=== PATIENT | female | born 1965 | race Caucasian/White ===

== ENCOUNTER 2020-07-16 11:23 | Emergency (ER) | payer OTHER, SELFPAY ==
[2020-07-16 11:32] VITALS: BP 170/94; PULSE 87; RESP 18; TEMP 36.2; O2SAT 99
--- NOTE | 2020-07-16 11:59 | ED.URI ---
HPI - URI/Sore Throat General Chief Complaint: Upper Respiratory Infection Stated Complaint: upper respiratory infection Time Seen by Provider: 07/16/20 11:40 Source: patient and RN notes reviewed Mode of arrival: ambulatory Limitations: no limitations History of Present Illness HPI Narrative: Patient presents today with a 3-week history of nasal congestion, postnasal drip, right ear pain and muffled hearing. She had a telephone visit with her PCP at [place] last week and was placed on a 5-day course of Levaquin. States symptoms have not improved. She called her PCPs office and was told to come to urgent care for a jeop-zg-tuor evaluation. Since symptoms began, patient has been using Synex (oxymetazoline) nasal spray, [id number] eardrops containing alcohol and glycerin, NyQuil, and Sudafed. Denies fever, shortness of breath, cough MD elicited complaint: nasal congestion Related Data Home Medications Medication Instructions Recorded Confirmed lisinopril 5 mg tablet 5 mg PO DAILY 09/26/19 07/16/20 Allergies Allergy/AdvReac Type Severity Reaction Status Date / Time amoxicillin Allergy Severe hives Verified 07/16/20 11:37 Review of Systems Review of Systems: Narrative: CONSTITUTIONAL: Denies body aches, fever, chills, or sweats. EYES: Denies visual changes, redness, or discharge. ENT: Denies rhinorrhea, sore throat. + Nasal congestion, postnasal drip, right ear pain and muffled hearing CARDIOVASCULAR: Denies chest pain, palpitations, or edema. RESPIRATORY: Denies cough or dyspnea. GASTROINTESTINAL: Denies abdominal pain, nausea, vomiting, or diarrhea. GENITOURINARY: Denies dysuria or hematuria. SKIN: Denies rash, itching, or wounds. MUSCULOSKELETAL: Denies back pain, joint pain, or myalgia. NEUROLOGIC: Denies headache, numbness, tingling, or weakness. PSYCH: Denies depression or anxiety. [facility] Past Medical History Medical History (Updated 07/16/20 @ 12:05 by Linda Quarles, [facility], ) Douglas's thyroiditis Hypertension Family History Family History (Updated 06/11/16 @ 23:19 by DOCTOR UNKNOWN) Mother Family history of osteoporosis Family history of heart disease in male family member before age 55 Grandparent Family history of cataracts Family history of congestive heart failure Father Family history of cataracts Family history of diabetes mellitus in first degree relative Family history of congestive heart failure Social History Social History Smoking status: Never smoker Alcohol intake: never Comments At time of signature, I have reviewed and agree with nursing past medical, surgical, social and family history unless otherwise noted. Please see nursing chart for further information. There is no relevant family history pertinent to the presenting complaint Exam Narrative: Exam Narrative: GENERAL: Well-appearing, well-nourished, and in no acute distress. HEAD: Normocephalic, atraumatic. EYES: EOMI. No redness or drainage. Conjunctivae normal. ENT: Mucous membranes pink and moist. Bilateral erythematous and edematous nasal turbinates with clear drainage. No rhinorrhea. Left TM normal. Right TM is slightly injected and mildly bulging with clear fluid. Throat normal. Uvula midline. NECK: Normal AROM. Supple. No lymphadenopathy. CHEST: No respiratory distress. Clear to auscultation. HEART: Regular rate and rhythm. No murmur appreciated. Normal peripheral pulses. EXTREMITIES: Normal range of motion. No edema. SKIN: Warm, dry, no rash. Capillary refill normal. Normal skin turgor. NEURO: No focal deficits. Alert and oriented x3. Gait steady. PSYCH: Normal affect. No signs of depression or anxiety. Course Vital Signs Vital signs: Vital Signs Temperature 97.2 F L 07/16/20 11:32 Pulse Rate 87 07/16/20 11:32 Respiratory Rate 18 07/16/20 11:32 Blood Pressure 170/94 H 07/16/20 11:32 Pulse Oximetry 99 07/16/20 11:32 Temperature 97.2 F L
== END 2020-07-16 12:09 | disposition home or self-care (01) ==
PROVIDERS: Emergency Provider Nurse Practitioner
DX: J31.0 Chronic rhinitis (principal); H65.91 Unspecified nonsuppurative otitis media, right ear; E06.3 Autoimmune thyroiditis; I10 Essential (primary) hypertension
CPT/HCPCS: 99213; G0463

== ENCOUNTER 2020-08-07 14:34 | Emergency (ER) | payer OTHER, SELFPAY ==
[2020-08-07 14:46] VITALS: BP 145/84; PULSE 86; RESP 20; TEMP 36.7; O2SAT 99
--- NOTE | 2020-08-07 14:57 | ED.BACK ---
HPI - Back Pain/Injury General Chief Complaint: Back Pain/Injury Stated Complaint: back pain Source: patient Mode of arrival: ambulatory Limitations: no limitations History of Present Illness HPI Narrative: 55-year-old female presents to [facility] care with complaints of right upper back pain for the past 3 days. Patient reports that the pain became much worse last night. Patient has been taking jbzj-obc-zjaindh Tylenol and applying heat and cool compress with little relief. Patient reports long history of back pains. Patient denies numbness, tingling, bowel or bladder problems, chest pain or shortness of breath. MD elicited complaint: back pain Pertinent past history: prior back pain Onset (ago): day(s) (3) Timing: constant Severity: moderate Similar Symptoms Previously: Yes Quality: sharp Exacerbating factors: movement and lifting Relieving factors: none Associated symptoms: denies other symptoms Related Data Home Medications Medication Instructions Recorded Confirmed lisinopril 5 mg tablet 5 mg PO DAILY 09/26/19 08/07/20 Allergies Allergy/AdvReac Type Severity Reaction Status Date / Time amoxicillin Allergy Severe hives Verified 08/07/20 14:50 Review of Systems Review of Systems: All systems reviewed & are unremarkable except as noted in HPI and below Constitutional: Constitutional: Denies chills, Denies fatigue, Denies fever(s) and Denies weakness ENT: Denies vertigo and Denies dizziness Cardiovascular: Cardiovascular: Denies chest pain, Denies rapid heart rate, Denies radiating jaw, neck or arm pain and Denies slow heart rate Respiratory: Respiratory: Denies chest congestion, Denies cough, Denies dyspnea and Denies wheezing Gastrointestinal: Gastrointestinal: Denies abdominal pain, Denies diarrhea, Denies nausea and Denies vomiting Musculoskeletal: Musculoskeletal: Reports back pain, Denies myalgias, Denies joint swelling and Denies muscle cramps Integumentary/Breasts: Skin/Breast: Denies rash Neurologic: Denies vertigo, Denies dizziness, Denies headache(s), Denies focal weakness, Denies numbness and Denies weakness PMFSH Past Medical History Medical History (Updated 08/07/20 @ 15:25 by Deana Bauer APRN) Douglas's thyroiditis Hypertension Surgical History Surgical History (Updated 08/07/20 @ 15:00 by Deana Bauer APRN) Tubal ligation status Family History Family History Mother Family history of osteoporosis Family history of heart disease in male family member before age 55 Grandparent Family history of cataracts Family history of congestive heart failure Father Family history of cataracts Family history of diabetes mellitus in first degree relative Family history of congestive heart failure Social History Social History Smoking status: Never smoker Alcohol intake: never Exam Const: General: healthy appearing, no acute distress and alert Orientation/consciousness: patient oriented x3 Neck: Neck: normal visual inspection Resp: Effort & Inspection: normal respiratory effort, not labored and not tachypneic Auscultation: clear to auscultation bilaterally and no wheezes Cardio: Rate: regular rate, not bradycardic and not tachycardic Rhythm: regular rhythm and regular rhythm GI: Inspection: non-distended Auscultation: normal bowel sounds Back/Spine/Pelvis: Back: no CVA tenderness Other: Mild amount of pain noted to right upper back upon palpation. There is a muscle spasm noted to right upper back. There is no rash, erythema, bruising or signs of infection noted. There is no vertebral tenderness noted upon palpation. There is no deformity noted Skin: General skin exam: normal color Rashes: no rashes Neuro: General: patient oriented x3, moves all extremities and no meningeal signs Extrem: General: normal to inspection Psych: Mental Status: ment
[2020-08-07] MEDS: KETOROLAC (*BKC) 60 MG/2 ML VIAL 30 MG IM (15:00)
== END 2020-08-07 15:35 | disposition home or self-care (01) ==
PROVIDERS: Emergency Provider Nurse Practitioner Family
DX: M62.830 Muscle spasm of back (principal); E06.3 Autoimmune thyroiditis; I10 Essential (primary) hypertension
CPT/HCPCS: 96372; 99213; G0463; J1885

== ENCOUNTER 2020-08-09 06:11 | Emergency (ER) | payer OTHER, SELFPAY ==
--- NOTE | ~2020-08-09 | CT_ITS ---
EXAMINATION: CT thoracic spine wo con DATE: 08/09/2020 07:53 INDICATION: Thoracic back pain TECHNIQUE: Computed tomography (CT) of the thoracic spine was performed without intravenous contrast. The dose-length product was 1073.48 mGy-cm. Automated exposure control and iterative reconstruction technique were employed. COMPARISON: None FINDINGS: There is mild levoscoliosis of the thoracic spine. No acute fracture, subluxation or disloc ation. No significant paraspinal soft tissue abnormality. Lung parenchyma is unremarkable. No pneumot horax identified. Surrounding osseous structures within normal limits. IMPRESSION: 1. No acute abnormality of the thoracic spine. Reviewed, dictated and finalized at location A.
[2020-08-09 06:13] VITALS: BP 149/82; PULSE 91; RESP 16; TEMP 36.7; O2SAT 99
--- NOTE | 2020-08-09 06:30 | ED.BACK ---
HPI - Back Pain/Injury General Chief Complaint: Back Pain/Injury <Xiomara Torre MD - Last Filed: 08/09/20 07:27> Stated Complaint: back pain <Xiomara Torre MD - Last Filed: 08/09/20 07:27> Time Seen by Provider: 08/09/20 06:30 <Xiomara Torre MD - Last Filed: 08/09/20 07:27> Source: patient <Xiomara Torre MD - Last Filed: 08/09/20 07:27> Mode of arrival: ambulatory <Xiomara Torre MD - Last Filed: 08/09/20 07:27> Limitations: no limitations <Xiomara Torre MD - Last Filed: 08/09/20 07:27> History of Present Illness HPI Narrative: Patient presents for evaluation of pain right upper back spasm.. Recently seen in urgent care, sent home on methocarbamol and has not been improving. Patient reports pain in the back of her right shoulder blade with radiation into her right shoulder and down into her arm. She denies any chest pain or shortness of breath. She denies pleuritic pain. No fever, chills, cough or hemoptysis. Pain is exacerbated with movement and resolves with rest. She denies any recent falls or injury. She denies numbness in her hands. She denies any weakness. Patient states that symptoms seem to occur after she did some light lifting/working out on Tuesday and and symptoms developed Tuesday. Patient denies any rash in that area. She does have a history of shingles and states she has not seen any blisters or wounds. Patient denies any midline back pain. She denies any flank pain or abdominal pain. <Xiomara Torre MD - Last Filed: 08/09/20 07:27> Related Data Home Medications: Home Medications Medication Instructions Recorded Confirmed lisinopril 5 mg tablet 5 mg PO DAILY 09/26/19 08/07/20 <Xiomara Torre MD - Last Filed: 08/09/20 07:27> Allergies/Adverse Reactions: Allergies Allergy/AdvReac Type Severity Reaction Status Date / Time amoxicillin Allergy Severe hives Verified 08/07/20 14:50 <Xiomara Torre MD - Last Filed: 08/09/20 07:27> Review of Systems Review of Systems: Narrative: CONSTITUTIONAL: Denies fever, chills, or sweats. ENT: Denies rhinorrhea, congestion CARDIOVASCULAR: Denies chest pain, palpitations, or edema. RESPIRATORY: Denies cough or dyspnea. GASTROINTESTINAL: Denies abdominal pain, nausea, vomiting, or diarrhea. GENITOURINARY: Denies dysuria or hematuria. SKIN: Denies rash or itching. MUSCULOSKELETAL: Reports right-sided back pain near to the shoulder NEUROLOGIC: Denies headache, numbness, or weakness. <Xiomara Torre MD - Last Filed: 08/09/20 07:27> [facility] Past Medical History Medical History: Medical History Douglas's thyroiditis Hypertension <Xiomara Torre MD - Last Filed: 08/09/20 07:27> Surgical History Surgical History: Surgical History (Updated 08/07/20 @ 15:00 by Deana Bauer APRN) Tubal ligation status <Xiomara Torre MD - Last Filed: 08/09/20 07:27> Family History Family History: Family History Mother Family history of osteoporosis Family history of heart disease in male family member before age 55 Grandparent Family history of cataracts Family history of congestive heart failure Father Family history of cataracts Family history of diabetes mellitus in first degree relative Family history of congestive heart failure <Xiomara Torre MD - Last Filed: 08/09/20 07:27> Social History Social History: Social History Smoking status: Never smoker Alcohol intake: never <Xiomara Torre MD - Last Filed: 08/09/20 07:27> Exam Narrative: Exam Narrative: GENERAL: Awake, alert, conversant HEAD: Normocephalic, atraumatic. EYES: PERRLA and EOMI. ENT: Nares clear, no rhinorrhea or epistaxis. Mucous membranes moist. NECK: Supple. CHEST: No respiratory distress, breathing e
--- NOTE | 2020-08-09 06:33 | PC.NURSE ---
pt presents to ER with c/o R upper back pain that radiates down R arm and into R upper chest. pt was seen at on and sent home with Meloxicam and Methocarbamol. pt denies relief of pain with medications. states pain has been persistent and she hasn't been able to sleep. full ROM to R arm. +PMS. Pt denies injury to arm. +pain with palpation. denies SOB, denies any associated sx. pt hooked up to monitor, will continue to monitor pt for baseline status changes.
--- NOTE | 2020-08-09 06:36 | ECG_ITS ---
Measurements Intervals [place] Rate: 75 P: 41 NM: 155 QRS: 27 QRSD: 90 T: 14 QT: 375 QTc: 421 Interpretive Statements SINUS RHYTHM BORDERLINE ST ABNORMALITY- ANTEROLATERAL LEADS BASELINE ARTIFACT- I, II, AVR BORDERLINE ECG Electronically Signed On 08-09-2020 8:33:34 CDT by Néstor Underwood D.O.
[2020-08-09] MEDS: KETOROLAC (*BKC) 60 MG/2 ML VIAL 30 MG IM (06:59)
[2020-08-09] MEDS: diazePAM (*CRX) 5 MG TABLET PO (06:59)
[2020-08-09 07:29] VITALS: TEMP 36.7
[2020-08-09 08:43] VITALS: BP 161/100; PULSE 75; RESP 18; O2SAT 100
== END 2020-08-09 08:44 | disposition home or self-care (01) ==
PROVIDERS: Emergency Provider Emergency Medicine
DX: M54.6 Pain in thoracic spine (principal); E06.3 Autoimmune thyroiditis; I10 Essential (primary) hypertension; R94.31 Abnormal electrocardiogram [ECG] [EKG]
CPT/HCPCS: 72128; 93005; 96372; 99284; A9270; J1100; J1885

== ENCOUNTER 2021-11-17 07:57 | Outpatient (CLI) | payer OTHER, SELFPAY ==
--- NOTE | 2021-11-18 17:47 | WPDHOMESLEEP ---
Sleep Study - Home Unattended Date of Study: 11/17/21 <Rosmery Mckeon DO - Last Filed: 11/18/21 17:59> Ordering Provider: Linda ChampagneMD <Rosmery Mckeon DO - Last Filed: 11/18/21 17:59> Interpreting Provider: Rosmery Mckeon DO <Rosmery Mckeon DO - Last Filed: 11/18/21 17:59> Home Sleep Study Type: Apnea Link Air <Rosmery Mckeon DO - Last Filed: 11/18/21 17:59> Height: 1.55 m <Rosmery Mckeon DO - Last Filed: 11/18/21 17:59> Weight: 95.254 kg <Rosmery Mckeon DO - Last Filed: 11/18/21 17:59> Body Mass Index: 39.6 <Rosmery Mckeon DO - Last Filed: 11/18/21 17:59> Neck Circumference (inches): 14 <Rosmery Mckeon DO - Last Filed: 11/18/21 17:59> [place]: 4 <Rosmery Mckeon DO - Last Filed: 11/18/21 17:59> Reason for Sleep Study Daytime hypersomnia <Rosmery Mckeon DO - Last Filed: 11/18/21 17:59> Sleep History The patient is a 56-year-old female with hypertension, hypothyroidism, hyperlipidemia and B12 deficiency that had a home sleep test ordered by her ditching machine operator. The patient rarely awakens from sleep short of breath. She denies awakening at night with heartburn, belching or cough. She frequently snores and is occasionally loud enough that others complain. She occasionally has trouble sleeping when she has a cold. She denies waking up gasping for air throughout the night. She denies having breathing problems at night observed by others. She denies sweating excessively at night. She rarely has heart palpitations or irregular heartbeats during the night. She rarely falls asleep during the day and never while driving. She denies sleep paralysis, cataplexy and hypnagogic / hypnopompic hallucinations. She denies having trouble at work that his sleepiness. She denies having nightmares. She frequently has thoughts racing through her mind. She denies feeling sad, depressed or anxious. She occasionally kicks during the night. She occasionally has crawling and aching feelings in her legs as well as leg pain during the night. She denies grinding her teeth during sleep and awakening with morning jaw pain. She is really bothered by pain during the day and is rarely awakened by pain during the night. She occasionally wakes up feeling stiff in the morning with sore and achy muscles. She occasionally wakes up with pain in the neck, spine and other joints. She goes to bed between 10 and 11:00 p.m. on weekdays and between 11:00 p.m. and midnight on the weekends. It takes her 1-2 hours to fall asleep. She will wake up 2-3 times per night. When she awakens, she will toss and turn to try to fall back asleep. She will open up staying awake for 20-30 minutes. She wakes up at 6:00 a.m. on weekdays and between 7 and 8:00 a.m. on the weekends. She typically gets between 6 and 8 hours of sleep per night. She will stay in bed for 15-30 minutes after waking up in the morning. He currently lives with her and her daughter. She does not consume any caffeinated beverages within 2 hours of bedtime. She does not engage in physical exercise before bedtime. She will watch television before falling asleep. She does not take naps in the afternoon with the evening. She drinks 48 oz of diet Coke per day. She denies tobacco, alcohol and recreational drug use. <Rosmery Mckeon DO - Last Filed: 11/18/21 17:59> [facility] Past Medical History Medical History: Medical History (Updated 11/18/21 @ 17:56 by Rosmery Mckeon DO) Douglas's thyroiditis Hypertension <Rosmery Mckeon DO - Last Filed: 11/18/21 17:59> Surgical History Surgical History: Surgical History Tubal ligation status <Rosmery Mckeon, DO - Last Filed: 11/18/21 17:59> Family History Family History: Family History (Reviewed 11/18/21 @ 17:53 by Rosmery Anthony
[2021-11-18 17:58] VITALS: BMI 39.6
== END 2021-11-18 10:23 | disposition home or self-care (01) ==
LOC: ANHCSM 07:58
PROVIDERS: Visit Provider Internal Medicine Endocrinology, Diabetes & Metabolism
DX: G47.30 Sleep apnea, unspecified (principal); G47.33 Obstructive sleep apnea (adult) (pediatric)
CPT/HCPCS: 95806

== ENCOUNTER 2022-02-20 07:15 | Emergency (ER) | payer OTHER, SELFPAY ==
[2022-02-20 07:19] VITALS: BP 167/117; PULSE 92; RESP 19; TEMP 36.4; O2SAT 99
[2022-02-20] MEDS: TIZANIDINE HCL 4 MG TABLET PO (07:43)
[2022-02-20] MEDS: ACETAMINOPHEN 500 MG TABLET 1000 MG PO (07:43)
[2022-02-20] MEDS: KETOROLAC 30 MG/ML VIAL (*BKC) IM (07:43)
--- NOTE | 2022-02-20 07:50 | ED.BACK ---
HPI - Back Pain/Injury General Chief Complaint: Back Pain/Injury Stated Complaint: back spasms, right arm pain Time Seen by Provider: 02/20/22 07:22 Source: patient History of Present Illness HPI Narrative: Patient presents with right upper back pain. Patient reports a history of back spasm in the same area as she gets it every couple years. She does see physical therapy for it. This episode started approximately 1 week ago she will discuss [employer] and was given steroids as well as a muscle relaxer however did not alleviate her symptoms so she came to this ER for further evaluation. Her pain is achy, radiates down her right arm, worse with moving. Denies any trauma in the area announcement patient denies any IV drug use denies any chills. Related Data Home Medications Medication Instructions Recorded Confirmed lisinopril 5 mg tablet 5 mg PO DAILY 09/26/19 08/07/20 Allergies Allergy/AdvReac Type Severity Reaction Status Date / Time amoxicillin Allergy Severe hives Verified 02/20/22 07:25 Review of Systems Review of Systems: CONSTITUTIONAL: Denies fever, chills, or sweats. EYES: Denies visual changes, redness, or discharge. ENT: Denies rhinorrhea, congestion, sore throat, or otalgia. CARDIOVASCULAR: Denies chest pain, palpitations, or edema. RESPIRATORY: Denies cough or dyspnea. GASTROINTESTINAL: Denies abdominal pain, nausea, vomiting, or diarrhea. GENITOURINARY: Denies dysuria or hematuria. SKIN: Denies rash or itching. MUSCULOSKELETAL: Denies back pain, joint pain, or myalgia. NEUROLOGIC: Denies headache, numbness, dizziness, or weakness. PSYCHIATRIC: Denies anxiety or depression. All systems reviewed & are unremarkable except as noted in HPI and below [facility] Past Medical History Medical History (Updated 02/20/22 @ 08:26 by Lai Clark MD) Douglas's thyroiditis Hypertension Surgical History Surgical History Tubal ligation status Family History Family History Mother Family history of osteoporosis Family history of heart disease in male family member before age 55 Grandparent Family history of cataracts Family history of congestive heart failure Father Family history of cataracts Family history of diabetes mellitus in first degree relative Family history of congestive heart failure Social History Social History Smoking status: Never smoker Alcohol intake: never Exam Narrative: GENERAL: Well-appearing, well-nourished, and in no acute distress. HEAD: Normocephalic, atraumatic. EYES: PERRLA and EOMI. ENT: Nares clear, no rhinorrhea or epistaxis. Mucous membranes moist. NECK: Supple. No masses. No JVD. BACK: Has palpation and spasm noted along the right trapezius there is diffuse tenderness is muscle there is no obvious deformities no open or draining wounds EXTREMITIES: Normal range of motion. No edema. SKIN: Warm, dry, no rash. NEURO: No focal deficits. Alert and oriented x3. PSYCH: Normal mood and affect. Course Reevaluation(s) Reevaluation #1: Patient received her medications prior to reevaluation. Patient has not noted any signal change in her symptoms discuss medications use to assist with muscle as of this type of pain. Patient is requesting a Medrol Dosepak because it was initially effective in controlling her pain control her symptoms until she is able to see physical therapy on Tuesday. Date: 02/20/22 Time: 08:24 Vital Signs Vital signs: Vital Signs Temperature 36.4 C 02/20/22 07:19 Pulse Rate 92 02/20/22 07:19 Respiratory Rate 19 02/20/22 07:19 Blood Pressure 167/117 H 02/20/22 07:19 Pulse Oximetry 99 02/20/22 07:19 Temperature 36.4 C 02/20/22 07:19 Pulse Rate 80 02/20/22 08:29 Respiratory Rate 18 02/20/22 08:29 Blood Pressure 150/98 H 02/20/22 08:29 Pulse Oximetr
[2022-02-20 08:29] VITALS: BP 150/98; PULSE 80; RESP 18; O2SAT 100
== END 2022-02-20 08:31 | disposition home or self-care (01) ==
PROVIDERS: Emergency Provider Emergency Medicine
DX: M54.6 Pain in thoracic spine (principal); E06.3 Autoimmune thyroiditis; I10 Essential (primary) hypertension
CPT/HCPCS: 96372; 99283; A9270; J1885

== ENCOUNTER 2024-11-11 09:00 | Emergency (ER) | payer OTHER, SELFPAY ==
[2024-11-11 09:26] VITALS: BP 155/102; PULSE 73; RESP 16; TEMP 35.9; O2SAT 100
--- NOTE | 2024-11-11 09:55 | ED.EYEPROB ---
HPI - Eye Problem General Chief complaint: Eye Problems Stated complaint: ? [facility] Time Seen by Provider: 11/11/24 09:55 Source: patient Mode of arrival: ambulatory Limitations: no limitations History of Present Illness HPI Narrative: 59-year-old female presented for complaint of bilateral eye redness, irritation and drainage over the past 3 days.She started using an [id number] Naphcon drop. Denies vision changes, eye pain, headache, or dizziness. Patient also reports she has had nasal congestion drainage over 10 days. Denies shortness of breath, wheezing nausea vomiting, diarrhea, fevers or chills. chief complaint: eye pain Related Data Home Medications ?Medication ?Instructions ?Recorded ?Confirmed ?Last Taken ?Type lisinopril 5 mg tablet 5 mg PO DAILY 09/26/19 08/07/20 Unknown History Allergies Allergy/AdvReac Type Severity Reaction Status Date / Time amoxicillin Allergy Mild hives Verified 11/11/24 09:31 Review of Systems Review of Systems: per HPI All systems reviewed & are unremarkable except as noted in HPI and below PMFSH Past Medical History Medical History (Updated 11/11/24 @ 10:05 by Bre Corbett APRN) Hypertension Douglas's thyroiditis Surgical History Surgical History Tubal ligation status Family History Family History Mother Family history of osteoporosis Family history of heart disease in male family member before age 55 Grandparent Family history of cataracts Family history of congestive heart failure Father Family history of cataracts Family history of diabetes mellitus in first degree relative Family history of congestive heart failure Social History Social History Smoking status: Never smoker Alcohol intake: never Comments At time of signature, I have reviewed and agree with nursing past medical, surgical, social and family history unless otherwise noted. Please see nursing chart for further information. There is no relevant family history pertinent to the presenting complaint Exam Narrative: GENERAL: Well-appearing HEAD: Normocephalic, atraumatic. EYES: bilateral conjunctival injection, no eye lid swelling/redness, PERRLA, EOMI. Lid eversion shows no FB. ENT: Mucous membranes pink and moist. Nasal congestion. TMs normal bilaterally. Throat normal. Uvula midline. CHEST: Clear to auscultation. HEART: Regular rate and rhythm. SKIN: Warm, dry, no rash. Normal skin turgor. NEURO: No focal deficits. Alert and oriented x3 PSYCH: Normal affect. Course Course Emergency Course: Patient is aware of diagnosis, understands and agrees to treatment plan. Anticipatory guidance given. Patient agrees to follow-up as directed and is aware of reasons to seek care at the emergency department. Portions of this record may have been created with voice recognition software Level of Care: Express Care Visit Vital Signs Vital signs: Vital Signs Temperature 96.7 F L 11/11/24 09:26 Pulse Rate 73 11/11/24 09:26 Respiratory Rate 16 11/11/24 09:26 Blood Pressure 155/102 H 11/11/24 09:26 Pulse Oximetry 100 11/11/24 09:26 Temperature 96.7 F L 11/11/24 09:26 Pulse Rate 73 11/11/24 09:26 Respiratory Rate 16 11/11/24 09:26 Blood Pressure 155/102 H 11/11/24 09:26 Pulse Oximetry 100 11/11/24 09:26 MDM - Eye Problem MDM Narrative Medical decision making narrative: Discussed physical exam findings, bilateral conjunctivitis and sinusitis. Reviewed prescriptions.. Advised supportive measures and signs/symptoms to go to the ER. Pt is appropriate for outpt treatment and f/u. Differential Diagnosis Differential diagnosis: Likely corneal abrasion, conjunctivitis, acute iritis and other Discharge Plan Discharge Clinical Impression: Bacterial conjunctivitis Upper respiratory infection Qualifiers: URI type: unspecified URI Qualified Code(s): J06.9 - Acute upper respiratory infection, unspecified Patient Disposition: Home, Self-Care Condition: Stable Instructions: Antibiotic Form, Conjunctivitis (ED) Additional Instructions: For Eyes: Avoid touching or rubbing your eye. Use over the counter lubricating eye drops as needed for irritation Use a warm or cool washcloth on your eye for comfort Use eyedrops as directed - you are contagious for 24 hours after starting the antibiotic Practice good handwashing and hygiene to prevent spread of infection Use new makeup, lashes etc. You may take Tylenol or ibuprofen for pain For sinus: Flonase spray and Zyrtec (or Claritin/Jazmin) over the counter Cough syrup may cause drowsiness; avoid driving or take it at night time. Tylenol 1000mg every 8 hours as needed for pain Symptomatic treatment includes: rest, fluids, and increase humidity of the air at home. Follow-up with PCP or oral and maxillofacial surgery resident if condition is not improving in 2-3days. Go to the emergency room if you have severe pain or pressure behind your eye, difficulty seeing, or other severe symptoms Patient Language: Malagasy Prescriptions: New polymyxin B sulf-trimethoprim 10,000 unit- 1 mg/mL drops 1 drp EACH EYE Q3H 7 Days Qty: 10 0RF Rx Instructions: while awake; do not exceed 6 doses in 24 hours azithromycin [Zithromax Z-Yan] 250 mg tablet See Rx Instructions .ROUTE .COMPLEX Qty: 6 0RF Rx Instructions: For 250 mg dose pack: take 500 mg today (day 1), then 250 mg for 4 days (days 2-5) No Action meloxicam 7.5 mg tablet 7.5 mg PO BID Qty: 20 0RF methocarbamol 500 mg tablet 500 mg PO TID PRN (Reason: pain) Qty: 20 0RF lisinopril 5 mg tablet 5 mg PO DAILY prednisone 20 mg tablet 20 mg PO DAILY 5 Days Qty: 5 0RF diazepam 5 mg tablet 5 mg PO HS PRN (Reason: pain, moderate) Qty: 10 0RF gabapentin 300 mg capsule 300 mg PO DAILY Qty: 30 0RF methylprednisolone [Medrol (Yan)] 4 mg tablets,dose pack See Rx Instructions .ROUTE .COMPLEX Qty: 21 0RF Rx Instructions: orally per package directions levothyroxine [Synthroid] 125 mcg tablet 125 mcg PO DAILY Qty: 90 3RF Rx Instructions: Take 1 tablet by mouth Tuesday through Tuesday and 1/2 tablet on Sundays. Follow-up/Referrals: UNKNOWN,DOCTOR [Primary Care Provider] -
--- OUTSIDE RECORDS SUMMARY | 2024-11-18 04:58 | XMS_ITS | Continuity of Care Document ---
Author Name [facility] Organization [facility] Care Team Providers Care Income Tax Administrator Name Role Phone [facility] Unavailable Unavailable Problems Combined list of problems from Department of Defense and Veterans Affairs facilities. It does not include entries that were removed or entered in error. Problem Status Onset Date Problem Type Date of Resolution Comments Source Essential (primary) hypertension Active Condition DoD Other sleep apnea Active Condition DoD Encounter for general adult medical examination with abnormal findings Active Condition [facility] Preventive Medicine Established Patient Checkup Adult 40-64 Years Inactive Condition DoD visit for: laboratory Inactive Condition DoD muscle aches, generalized (myalgia) Active Condition [facility] Outpatient Physician Consultation Active Condition [facility] visit for: refer patient without exam or treatment Inactive Condition [facility] visit for: issue repeat prescription Inactive Condition [facility] sinusitis Active Condition [facility] vitamin D deficiency Active Condition [facility] thyroid disorders Active Condition DoD obesity Active Condition [facility] routine gynecological exam with cervical pap smear Inactive Condition [facility] visit for: screening exam for malignant neoplasm cervix Inactive Condition [facility] other specified viral disease Inactive Condition [facility] hypertension systemic Active Condition DoD joint pain, localized in the right shoulder Active Condition [facility] midback pain Active Condition [facility] visit for: administrative purpose Inactive Condition [facility] Combined Systolic And Diastolic Elevation Active Condition [facility] visit for: screening exam hypertension Inactive Condition [facility] Blood Pressure Isolated Elevated Active Condition [facility] shoulder sprain rotator cuff capsule right Active Condition [facility] cough Inactive Condition DoD upper respiratory infection Inactive Condition [facility] injury caused by animal bee sting hornets / wasps / bees Inactive Condition [facility] routine history and physical Active Condition - Pt with normal hx and physical except elevated BP (see below).- Pt just had mammo.- Pt not due for pap for one more year.- WIll check BMP as pt obese and at risk of DM.- Will check TSH and lipids.- Case discussed with Dr. Shaw. [facility] visit for: screening exam malignant neoplasm breast Inactive Condition - normal clinical breast exam.- pt due for next breast exam and mammogram in one year. [facility] essential hypertension Active Condition - No prior hx of HTN.- Will treat with diet and exercise for one month.- If no improvement during that time, then will start meds to lower BP.- Pt very motivated to improve diet and exercise. DoD Cervix Sample Taken For Pap Smear Active Condition Pt to f/u as needed per Dr. Garvin this am. Pt also to get first mammogram and to do self checks. Will space PAPs to Q3 yrs unless abnl bleeding pain or new sexual partners. DoD fatigue Active Condition Pt has poo r sleep hygiene. Discussed need to go to bed at same time each night, not to read or watch TV in bed, etc.If having proper sleep hygiene doesn't improve sx, then she can return to clinic in about 3 months. DoD routine history and physical adult (18 - 64 yrs) Inactive Condition Doing well, no acute issues to address (other than fatigue, see below). Pt to have Pap smear later today (she thought they were to be done separately). Will get mammo ordered at that time.I will order screening labs at this time. OTW f/u in 1 year or so DoD Occupational Therapy Inactive Condition DoD cubital tunnel syndrome Active Condition DoD osteoarthritis generalized Active Condition Patient C/O joint pain over time which has not changed. Agreed to trial of conservative strategies geared toward relief of arthritis symptoms. DoD Allergies, Adverse Reactions, Alerts Combined list of allergies from Department of Defense and Veterans Affairs facilities. It does not include entries that were removed or entered in error. Substance Category Reaction Severity Reaction type Status Date Reported Comments Source AMOXICILLIN Propensity to adverse reactions to drug (finding) HIVES active 3 [facility] amoxicillin Propensity to adverse reactions to drug Unknown Active Reaction( s): Unknown; Note: [facility] Ambulatory Pharmacy AMOXIL Drug allergy (disorder) Unknown active 3 [place] [address] Immunizations Combined list of available immunizations from the Department of Defense and Veterans Affairs facilities. Immunization Series Date Given Administered By Site Reaction Lot Number CVX Code Drug Instrumentation Supervisor Status Comments Source COVID-19, mRNA, LNP-S, PF, 100 mcg or 50 mcg dose 2021 Zachery AGUAYO [employer] (MOD) Not Given COVID-19, mRNA, LNP-S, PF, 100 mcg or 50 mcg dose [facility] SARS-CoV-2 (COVID-19) Ad26 vaccine, rec [id number] [place] [address] SARS-CoV- 2 (COVID-19 ) Ad26 vaccine, rec 09/18/21 Given Ambulat ory Pharmac y COVID-19 vaccine, vector-nr, rS-Ad26, PF, 0.5 mL 2020 PHYLLIS, () Not Given COVID-19 vaccine, vector-nr , rS-Ad26, PF, 0.5 mL DoD Influenza, inj, MDCK, quadrivalent- pf 2020 171 Seq[employer] complet ed Influenza , inj, MDCK, quadrival ent-pf 08/08/21 Given Ambulat ory Pharmac y Influenza, injectable, MDCK, preservative free, quadrivalent 2020 DENNYS, () Not Given Influenza , injectabl e, MDCK, preservat betty free, quadrival ent DoD SARS-CoV-2 (COVID-19) Ad26 vaccine, rec 2020 [id number] complet ed SARS-CoV- 2 (COVID-19 ) Ad26 vaccine, rec 01/19/21 Given Ambulat ory Pharmac y SARS-CoV-2 (COVID-19) Ad26 vaccine, rec 2020 [id number] complet ed SARS-CoV- 2 (COVID-19 ) Ad26 vaccine, rec 01/19/21 Given Ambulat ory Pharmac y SARS-COV-2 (COVID-19) vaccine, vector non-replicati ng, recombinant spike protein-Ad26, preservative free, 0.5 mL 1 2020 Unknown, Provider [id number] 212 [facility] (DERRICKN) complet ed SARS-COV- 2 (COVID-19 ) vaccine, vector non-repli cating, recombina nt spike protein-A d26, preservat betty free, 0.5 mL DoD influenza, injectable, quadrivalent- pf 2019 150 Gl[employer]oSmith[employer] complet ed influenza , injectabl e, quadrival ent-pf 09/26/20 Given Ambulat ory Pharmac y influenza, injectable, quadrivalent, preservative free 2019 ALUL, () Not Given influenza , injectabl e, quadrival ent, preservat betty free DoD influenza, injectable, quadrivalent- pf 2018 150 [employer] complet ed influenza , injectabl e, quadrival ent-pf 08/10/19 Given Ambulat ory Pharmac y influenza, injectable, quadrivalent- pf 2017 150 [employer] complet ed influenza , injectabl e, quadrival ent-pf 08/12/18 Given Ambulat ory Pharmac y Influenza, seasonal, injectable, preservative free 2016 ALUL, () Not Given Influenza , seasonal, injectabl e, preservat betty free DoD influenza, injectable, quadrivalent- pf 2015 zzLef t Arm [id number] 150 [employer]oSmithK[employer] ne complet ed influenza , injectabl e, quadrival ent-pf 09/08/16 Given Ambulat ory Pharmac y Influenza, injectable, quadrivalent, preservative free 1 2015 Unknown, Provider [id number] 150 [employer] (RITIKA) complet ed Influenza , injectabl e, quadrival ent, preservat betty free DoD tetanus, diphtheria, acellular pertu is 2014 zzRig ht Arm [id number] 115 GlaxoSmithKli ne complet ed tetanus, diphtheri a, acellular pertussis 09/03/15 Given Ambulat ory Pharmac y influenza, injectable, quadrivalent- pf 2014 zzRig ht Arm [id number] 150 GlaxoSmithKli ne complet ed influenza , injectabl e, quadrival ent-pf 09/03/15 Given Ambulat ory Pharmac y influenza, injectable, quadrivalent- pf 2014 [id number] 150 GlaxoSmithKli ne complet ed influenza , injectabl e, quadrival ent-pf 09/03/15 Given Ambulat ory Pharmac y tetanus, diphtheria, acellular pertu is 2014 [id number] 115 GlaxoSmithK[employer] ne complet ed tetanus, diphtheri a, acellular pertussis 09/03/15 Given Ambulat ory Pharmac y tetanus toxoid, reduced diphtheria toxoid, and acellular pertu is vaccine, adsorbed 1 2014 Unknown, Provider [id number] 115 [employer] (RITIKA) complet ed tetanus toxoid, reduced diphtheri a toxoid, and acellular pertussis vaccine, adsorbed DoD Influenza, injectable, quadrivalent, preservative free 1 2014 Unknown, Provider [id number] 150 [employer] (RITIKA) complet ed Influenza , injectabl e, quadrival ent, preservat betty free DoD influenza, seasonal, injectable-pf 2012 TRANSCR IBED 140 complet ed influenza , seasonal, injectabl e-pf 08/23/13 Given Ambulat ory Pharmac y influenza, seasonal, injectable-pf 2012 TRANSCR IBED 140 complet ed influenza , seasonal, injectabl e-pf 08/23/13 Given Ambulat ory Pharmac y Influenza, seasonal, injectable, preservative free 1 2012 Unknown, Provider 140 Transcribed (TRS) complet ed Influenza , seasonal, injectabl e, preservat betty free DoD influenza, seasonal, injectable 2011 141 sanofi pasteur complet ed influenza , seasonal, injectabl e 08/12/12 Given Ambulat ory Pharmac y influenza, seasonal, injectable-pf 2010 TRANSCR IBED 140 Novartis Pharmaceut[employer] ls complet ed influenza , seasonal, injectabl e-pf 08/03/11 Given Ambulat ory Pharmac y influenza, seasonal, injectable 2009 141 Novartis Pharmaceut[employer] ls complet ed influenza , seasonal, injectabl e 08/20/10 Given Ambulat ory Pharmac y influenza virus vaccine,split [facility] [id number] 15 GlaxoSmithKli ne complet ed influenza virus vaccine,s plit 10/21/06 Given Ambulat ory Pharmac y influenza virus vaccine,split 2005 [id number] 15 GlaxoSmithKli ne complet ed influenza virus vaccine,s plit 10/21/06 Given Ambulat ory Pharmac y influenza virus vaccine, split virus (incl. purified surface antigen)-reti red CODE 1 2005 Unknown, Provider [id number] 15 [facility] ([facility]) complet ed influenza virus vaccine, split virus (incl. purified surface antigen)- retired CODE [facility] influenza virus vaccine,split [id number] 15 sanofi pasteur complet ed influenza virus vaccine,s plit 10/01/05 Given Ambulat ory Pharmac y influenza virus vaccine, split virus (incl. purified surface antigen)-reti red CODE 1 2004 Unknown, Provider [id number] 15 Sanofi Pasteur (PMC) complet ed influenza virus vaccine, split virus (incl. purified surface antigen)- retired CODE [facility] influenza virus vaccine, whole virus 2002 zzLef t Arm [id number] 16 sanofi pasteur complet ed influenza virus vaccine, whole virus 10/22/03 Given Ambulat ory Pharmac y influenza virus vaccine, whole virus 2002 [id number] 16 sanofi pasteur complet ed influenza virus vaccine, whole virus 10/22/03 Given Ambulat ory Pharmac y influenza virus vaccine, whole virus 1 2002 Unknown, Provider [id number] 16 [facility] complet ed influenza virus vaccine, whole virus DoD influenza virus vaccine, whole virus 2001 [id number] 16 [facility] complet ed influenza virus vaccine, whole virus 09/18/02 Given Ambulat ory Pharmac y influenza virus vaccine, whole virus 2001 [id number] 16 [facility] complet ed influenza virus vaccine, whole virus 09/18/02 Given Ambulat ory Pharmac y influenza virus vaccine, whole virus 1 2001 Unknown, Provider [id number] [facility] complet ed influenza virus vaccine, whole virus DoD influenza virus vaccine, whole virus 2000 zzL t Arm [id number] 16 sanofi pasteur complet ed influenza virus vaccine, whole virus 09/13/01 Given Ambulat ory Pharmac y influenza virus vaccine, whole virus 1 2000 Unknown, Provider [id number] 16 [facility] ([facility]) complet ed influenza virus vaccine, whole virus DoD influenza virus vaccine, whole virus 2000 zzLef t Arm [id number] 16 [facility] complet ed influenza virus vaccine, whole virus 11/17/00 Given Ambulat ory Pharmac y influenza virus vaccine, whole virus 2000 [id number] 16 [facility] complet ed influenza virus vaccine, whole virus 11/17/00 Given Ambulat ory Pharmac y influenza virus vaccine, whole virus 1 2000 Unknown, Provider [id number] 16 [facility] ([facility]) complet ed influenza virus vaccine, whole virus DoD influenza virus vaccine, whole virus 1998 [id number] 16 [facility] complet ed influenza virus vaccine, whole virus 09/07/99 Given Ambulat ory Pharmac y tetanus-dipht h toxoids (Td) adult/adol 1998 [id number] 09 [facility] complet ed tetanus-d iphth toxoids (Td) adult/ado l 09/07/99 Given Ambulat ory Pharmac y tuberculin purified protein derivative 1998 2506-11 96 [facility] Patient Tolerance : Negative Ambulat ory Pharmac y influenza virus vaccine, whole virus 1998 [id number] 16 [facility] influenza virus vaccine, whole virus 09/07/99 Given Ambulat ory Pharmac y tetanus-dipht h toxoids (Td) adult/adol 1998 [id number] 09 [facility] tetanus-d iphth toxoids (Td) adult/ado l 09/07/99 Given Ambulat ory Pharmac y tuberculin purified protein derivative 1998 2506-11 96 [facility] tuberculi n purified protein derivativ e 09/07/99 Given Ambulat ory Pharmac y tetanus and diphtheria toxoids, adsorbed, preservative free, for adult use (2 Lf of tetanus toxoid and 2 Lf of diphtheria toxoid) 1 1998 Unknown, Provider [id number] 09 [facility] ([facility] complet ed tetanus and diphtheri a toxoids, adsorbed, preservat betty free, for adult use (2 Lf of tetanus toxoid and 2 Lf of diphtheri a toxoid) DoD influenza virus vaccine, whole virus 1 1998 Unknown, Provider [id number] 16 [facility] ([facility] complet ed influenza virus vaccine, whole virus DoD tuberculin skin test; purified protein derivative solution, intradermal 1 1998 Unknown, Provider [id number] 96 [facility] ([facility] complet ed tuberculi n skin test; purified protein derivativ e solution, intraderm al DoD yellow fever vaccine [id number] 37 [facility] complet ed yellow fever vaccine 03/18/99 Given Ambulat ory Pharmac y typhoid vaccine, live, oral 1998 [id number]. 1 25 [place] [employer] [place] complet ed typhoid vaccine, live, oral 03/18/99 Given Ambulat ory Pharmac y yellow fever vaccine [id number] 37 [facility] complet ed yellow fever vaccine 03/18/99 Given Ambulat ory Pharmac y typhoid vaccine, live, oral 1998 [id number]. 1 25 [place] [employer] [place] complet ed typhoid vaccine, live, oral 03/18/99 Given Ambulat ory Pharmac y typhoid vaccine, live, oral 1 1998 Unknown, Provider [id number]. 1 25 [place] [facility] (SI) complet ed typhoid vaccine, live, oral DoD yellow fever vaccine 1 1998 Unknown, Provider [id number] 37 [place] (CON) complet ed yellow fever vaccine DoD influenza virus vaccine, whole virus 19976157 [id number] 16 [facility] complet ed influenza virus vaccine, whole virus 09/02/98 Given Ambulat ory Pharmac y influenza virus vaccine, whole virus 19970630 [id number] 16 [facility] complet ed influenza virus vaccine, whole virus 09/02/98 Given Ambulat ory Pharmac y influenza virus vaccine, whole virus 1 1997 Unknown, Provider [id number] 16 [place] (CON) complet ed influenza virus vaccine, whole virus DoD meningococcal polysaccharid e (MPSV4) 19974739 [id number] 32 [facility] complet ed meningoco ccal polysacch aride (MPSV4) 07/28/98 Given Ambulat ory Pharmac y tuberculin purified protein derivative 1997 2483-11 96 [facility] complet ed Patient Tolerance : Negative Ambulat ory Pharmac y meningococcal polysaccharid e (MPSV4) 19974440 [id number] 32 [facility] complet ed meningoco ccal polysacch aride (MPSV4) 07/28/98 Given Ambulat ory Pharmac y tuberculin purified protein derivative 1997 2483-11 96 [facility] complet ed tuberculi n purified protein derivativ e 07/28/98 Given Ambulat ory Pharmac y meningococcal polysaccharid e vaccine (MPSV4) 1 1997 Unknown, Provider [id number] 32 [place] (CON) complet ed meningoco ccal polysacch aride vaccine (MPSV4) DoD tuberculin skin test; purified protein derivative solution, intradermal 1 1997 Unknown, Provider 2483-11 96 [place] (CON) complet ed tuberculi n skin test; purified protein derivativ e solution, intraderm al DoD influenza virus vaccine, whole virus 19964511 [id number] 16 [employer] complet ed influenza virus vaccine, whole virus 09/03/97 Given Ambulat ory Pharmac y influenza virus vaccine, whole virus 1 1996 Unknown, Provider [id number] 16 [facility] (Inactive) ([place]) complet ed influenza virus vaccine, whole virus DoD influenza virus vaccine, whole virus 1995 [id number] [facility], whole virus 10/08/96 Given Ambulat ory Pharmac y influenza virus vaccine, whole virus 1995 [id number] 16 [facility] complet ed influenza virus vaccine, whole virus 10/08/96 Given Ambulat ory Pharmac y tuberculin purified protein derivative [address] [place], [place] [address]aut Labs complet ed Patient Tolerance : Negative Ambulat ory Pharmac y influenza virus vaccine, whole virus 1 1995 Unknown, Provider [id number] 16 [place] (CON) complet ed influenza virus vaccine, whole virus DoD tuberculin skin test; purified protein derivative solution, intradermal 1 1995 Unknown, Provider 96 Pamela (CON) complet ed tuberculi n skin test; purified protein derivativ e solution, intraderm al DoD hepatitis A adult vaccine [id number] [facility] A adult vaccine 04/06/96 Given Ambulat ory Pharmac y hepatitis A adult vaccine 19951743 [id number] 52 [facility] hepatitis A adult vaccine 04/06/96 Given Ambulat ory Pharmac y hepatitis A vaccine, adult dosage 2 1995 Unknown, Provider [id number] 52 [place] (CON) complet ed hepatitis A vaccine, adult dosage DoD typhoid, parenteral, AKD 1994 UNK 53 [facility] complet ed typhoid, parentera l, AKD 08/19/95 Given Ambulat ory Pharmac y typhoid, parenteral, AKD 1994 UNK 53 [facility] complet ed typhoid, parentera l, AKD 08/19/95 Given Ambulat ory Pharmac y typhoid vaccine, parenteral, acetone-kille d, dried (U.S. ) 2 1994 Unknown, Provider TITO Herrera (HADLEY) complet ed typhoid vaccine, parentera l, acetone-k illed, dried ([place].S. ) DoD typhoid, parenteral, AKD 1994 HELENE 53 [facility] complet ed typhoid, parentera l, AKD 08/14/95 Given Ambulat ory Pharmac y typhoid vaccine, parenteral, acetone-kille d, dried ([place]S. ) 1 1994 Unknown, Provider HELENE Santiago (MARIPOSA) complet ed typhoid vaccine, parentera l, acetone-k illed, dried ([place].S. ) DoD tetanus-dipht h toxoids (Td) adult/adol 1988 HELENE 09 [facility] complet ed tetanus-d iphth toxoids (Td) adult/ado l 07/15/89 Given Ambulat ory Pharmac y tetanus-dipht h toxoids (Td) adult/adol 1988 N 09 [facility] complet ed tetanus-d iphth toxoids (Td) adult/ado l 07/15/89 Given Ambulat ory Pharmac y tetanus and diphtheria toxoids, adsorbed, preservative free, for adult use (2 Lf of tetanus toxoid and 2 Lf of diphtheria toxoid) 1988 Unknown, Provider HELENE Santiago (MAR[place]) complet ed tetanus and diphtheri a toxoids, adsorbed, preservat betty free, for adult use (2 Lf of tetanus toxoid and 2 Lf of diphtheri a toxoid) DoD yellow fever vaccine 19873339 [id number] 37 [facility] complet ed yellow fever vaccine 09/14/88 Given Ambulat ory Pharmac y yellow fever vaccine 19870534 [id number] 37 [facility] complet ed yellow fever vaccine 09/14/88 Given Ambulat ory Pharmac y yellow fever vaccine 1 1987 Unknown, Provider [id number] Chidi Santiago (CON) complet ed yellow fever vaccine DoD measles/mumps /rubella virus vaccine 1987 UKN 03 [employer] complet ed measles/m umps/rube lla virus vaccine 06/23/88 Given Ambulat ory Pharmac y poliovirus vaccine, live, oral 1987 UKN 02 [employer] complet ed polioviru s vaccine, live, oral 06/23/88 Given Ambulat ory Pharmac y measles/mumps /rubella virus vaccine 1987 UKN 03 [employer] complet ed measles/m umps/rube lla virus vaccine 06/23/88 Given Ambulat ory Pharmac y poliovirus vaccine, live, oral 1987 UKN 02 [employer] complet ed polioviru s vaccine, live, oral 06/23/88 Given Ambulat ory Pharmac y trivalent poliovirus vaccine, live, oral 1 1987 Unknown, Provider UKN 02 [employer] (LED) complet ed trivalent polioviru s vaccine, live, oral DoD measles, mumps and rubella virus vaccine 1 1987 Unknown, Provider UKN 03 Merck (MSD) complet ed measles, mumps and rubella virus vaccine DoD Vital Signs Combined list of inpatient and outpatient Vital Signs from Department of Defense and Veterans Affairs, ranging from 12 months to all on record, depending upon the facility. Vital Sign Value Date Comments Source No data available for this section Ambulatory Pharmacy Encounters Combined list of: 1) Encounters from Department of Veterans Affairs facilities going back up to thelast 18 months. 2) Encounters from the Department of Defense facilities going back up to 280 months. Location Location Details Encounter Type Encounter Number Reason For Visit Attending Provider ADM Date DC Date Status Disposition Source [address] [place] [address] Jasper HAIDER [facility]Ot Neuromusc uloskelet al Clinic) OUTPATIENT [id number] right elbow tendoni tis IVETTE GEORGE 06/03 Released with Work/Duty Limitations [address] [place] [address] Jasper HAIDER [facility]O t Neuromu sculosk eletal Clinic) [address] [place] [address] Jasper HAIDER [facility])(Occ upational Therapy) OUTPATIENT [id number] splint/ GAVINO Camacho 06/08 Released w/o Limitations [address] [place] [address] Jasper HAIDER [facility])(O ccupati onal Therapy ) [address] [place] [address] Jasper HAIDER [facility])(Occ upational Therapy) OUTPATIENT [id number] L wrist cock-up LEONARDO JOYCE 06/15 Released w/o Limitations [address] [place] [address] Jasper HAIDER [facility])(O ccupati onal Therapy ) [address] [place] [address] Jasper HAIDER [facility])([facility] S II Test Jasper) OUTPATIENT [id number] Transfe r of Jun visit from IVETTE Cole 07/03 Released with Work/Duty Limitations [address] [place] [address] Jasper HAIDER [place]C [facility] II Test Jasper[place] [address] [place] [address] Jasper GENEIsaac [facility])(Occ upational Therapy) OUTPATIENT [id number] educati on arthrit is DYLAN Ren 07/06 Released w/o Limitations [address] [place] [address] Jasper HAIDER [place] ccup[place]al Therapy [place] [address] [place] [address] Jasper GENEIsaac [facility])(Sco tt [facility] Fam Res Tm [place]) OUTPATIENT [id number] adult DANNI North 04/14 Released w/o Limitations [address] [place] [address] Jasper HAIDER [facility])(S cott [facility] Fam Res [place]m [place]) [address] [place] [address] Jasper GENEIsaac [place] [facility] [employer]) OUTPATIENT [id number] pap smear CIRO PERRY 04/14 Released w/o Limitations [address] [place] [address] Jasper HAIDER [facility])(S cott [facility] Fam Res [employer]m [place]) [address] [place] [address] Jasper GENEIsaac [facility])(Sco tt [facility] Fam Res Tm Green) OUTPATIENT [id number] FELIPA ALEXANDER 07/03 Released w/o Limitations [address] [place] [address] Jasper HAIDER [place] [facility] Fam [facility]) [address] [place] [address] Jasper GENEIsaac ([facility]Sco tt [facility] Fam Res Tm Green) TELE CONSULT [id number] Medical Update FELIPA SANDOVAL 05/[address] [place] [address] Jasper HAIDER [facility])(S cott [facility] Fam Res Tm Green) [address] [place] [address] Jasper GENEB [facility])(War rior Op Med Cln Tm A Ad) OUTPATIENT [id number] Possibl e sinus infecti on [phone] JUDITH LOPES 06/04 Released w/o Limitations [address] [place] [address] Jasper HAIDER [facility])(W arrior Op Med Cln Tm A Ad) [address] [place] [address] Jasper MILLSB [facility])(War rior Op Med Cln Tm A Ad) OUTPATIENT [id number] chest congest ion cough w/back pain [phone] MIRZA OLIVER 06/11 Released w/o Limitations [employer] [place]W [facility]rior Op Med Cln Tm A Ad) [employer] ([facility]War ri[facility] Op Med Cln Tm A Ad) OUTPATIENT [id number] right arm pain for about a month DERREK HA 04/06 Released w/o Limitations [employer] [place]W [facility]rior Op Med Cln Tm A Ad) [employer] ([facility]War rior Op Med Cln Tm A Ad) OUTPATIENT [id number] BP check 11/18 DERREK HA 04/07 Released w/o Limitations [employer] [place]W arrior Op Med Cln Tm A Ad) [employer] ([facility]War rior Op Med Cln Tm A Ad) OUTPATIENT [id number] BP check 12/19 DERREK HA 04/09 Released w/o Limitations [employer] [place]W arrior Op Med Cln Tm A Ad) [employer] ([facility]War rior Op Med Cln Tm A Ad) OUTPATIENT [id number] BP check 02/16 DERREK HA 04/14 Released w/o Limitations [employer] ([facility]W arrior Op Med Cln Tm A Ad) [employer] ([facility]War rior Op Med Cln Tm A Ad) OUTPATIENT [id number] BP check 03/18 DERREK HA 04/15 Released w/o Limitations [employer] ([facility]W arrior Op Med Cln Tm A Ad) [employer] ([facility]War rior Op Med Cln Tm A Ad) OUTPATIENT [id number] F/u elevate d BP Checks DERREK HA 05/04 Released w/o Limitations [employer] ([facility]W arrior Op Med Cln Tm A Ad) [employer] ([facility]War rior Op Med Cln Tm A Ad) OUTPATIENT [id number] 11/18 BP Check-L MIRZA Fong 05/05 Released w/o Limitations [employer] [place] ([facility]W arrior Op Med Cln Tm A Ad) [employer] [place] ([facility]War rior Op Med Cln Tm A Ad) OUTPATIENT [id number] BP Check 2/5-Karri elyssa MELODY MIRZA DARYL 05/06 Released w/o Limitations [employer] [place] ([facility]W arrior Op Med Cln Tm A Ad) [employer] [place] ([facility]War rior Op Med Cln Tm A Ad) OUTPATIENT [id number] BP Check 3/5 MELODY MIRZA DARYL 05/07 Released w/o Limitations [employer] [place] ([facility]W arrior Op Med Cln Tm A Ad) [employer] [place] ([facility]War rior Op Med Cln Tm A Ad) OUTPATIENT [id number] BP Check 4/5-Karri elyssa OLIVER, MIRZA DARYL 05/08 Released w/o Limitations [employer] [place] ([facility]W arrior Op Med Cln Tm A Ad) [employer] [place] ([facility]War rior Op Med Cln Tm A Ad) OUTPATIENT [id number] BP check 03/18 DERREK HA 05/11 Released w/o Limitations [employer] [place] ([facility]W arrior Op Med Cln Tm A Ad) [employer] [place] [facility])(War rior Op Med Cln Tm A Ad) OUTPATIENT [id number] F/U on Blood Pressur e [phone] DERREK HA 06/05 Released w/o Limitations [employer] [place]W arrior Op Med Cln Tm A Ad) [employer] GENEB [facility])(War rior Op Med Cln Tm A Ad) TELE CONSULT [id number] Pt wants letter to keep Dr Ha as PCM. ph [phone] MIRZA Shane 07/06 [employer] GENEB ([facility]W arrior Op Med Cln Tm A Ad) [employer] GENEB [facility])(War rior Op Med Cln Tm A Ad) OUTPATIENT [id number] rt shoulde r pain... [id number] KI MIRELES 10/02 Released w/o Limitations [employer] GENEIsaac [facility])(W arrior Op Med Cln Tm A Ad) [employer] GENEIsaac [facility])(War rior Op Med Cln Tm A Ad) TELE CONSULT [id number] Lab f/u MIRZA WESLEY R 10/28 [employer] Isaac [facility])(W arrior Op Med Cln Tm A Ad) [employer] [facility])(War rior Op Med Cln Tm A Ad) OUTPATIENT [id number] F/U [phone] sorenes s in shoulde r DERREK Coelho 01/18 Released w/o Limitations [employer] GENEIsaac ([facility]W arrior Op Med Cln Tm A Ad) [facility] [employer] HAIDER [facility])(Wio tt [facility] Team 3) TELE CONSULT [id number] Daphnie atbetty artriti s, continu e mediati on and PT JARRET CARREON 01/25 Referred for Appointment [employer] HAIDER [facility])(S montez [facility] Team 3) [facility] [employer] HAIDER [facility])(Wio tt Internal Medicine Tm) OUTPATIENT [id number] f/u on meds - [id number] ARNOL STONE 02/07 Released w/o Limitations [employer] HAIDER [facility])(S cott Interna l Medicin e Tm) [facility] [employer] Isaac [facility])(Wio tt Internal Medicine Tm) OUTPATIENT [id number] back pain going up through right shoulde r [id number] ARNOL STONE 11/17 Released w/o Limitations [employer] HAIDER ([facility]S cott Interna l Medicin e Tm) [facility] [employer] HAIDER [facility])([employer]) OUTPATIENT [id number] well woman exam [phone] TRE WARNER 11/28 Released w/o Limitations [facility] [employer] HAIDER ([facility]G ynecolo gy) [facility] [employer] HAIDER [facility])([employer]) TELE CONSULT [id number] Notes Entered by: EDI WARNER 30 Nov 2012 1727 ------- ------- ------- ------- -- results TRE WARNER 11/[address] [place] [address])(G ynecolo gy) [address] [place] [address])([employer]) TELE CONSULT [id number] Notes Entered by: EDI WARNER 06 Dec 2012 0900 ------- ------- ------- ------- -- results ROBERTA BERNARDO 12/[address] [place] [address])(G ynecolo gy) [address] [place] [address])([facility] ) OUTPATIENT [id number] f/u thyroid results [id number] ARNOL STONE 12/11 Released w/o Limitations [address] [place] [address])(S cott Interna l Medicin e Tm) [address] [place] [address])([employer]) TELE CONSULT [id number] Notes Entered by: EDI WARNER 11 Dec 2012 1549 ------- ------- ------- ------- -- results TRE WARNER 12/[address] [place] [address])(G ynecolo gy) [address] [place] [address])([facility] ) TELE CONSULT [id number] Notes Entered by: GINGER TAVARES 13 Dec 2012 0849 ------- ------- ------- ------- -- Fax over LABs & Rad to Dr. JEAN/Meka /229-19 59 SANA GONZALEZ 12/[address] [place] [address])(S cott Interna l Medicin e Tm) [address] [place] [address])([facility] ) OUTPATIENT [id number] cough, congest ion [id number] ARNOL STONE 03/29 Released w/o Limitations [address] [place] [address])(S cott Interna l Medicin e Tm) [address] [place] [address])([facility] ) TELE CONSULT [id number] Notes Entered by: SHIN LAGOS 02 Apr 2013 0846 ------- ------- ------- ------- -- Med change - Stone - [id number] 011 SANA GONZALEZ 04/[address] [place] [address])(S cott Interna l Medicin e Tm) [address] [place] [address])([facility] ) TELE CONSULT [id number] Notes Entered by: SHIN LAGOS 03 Apr 2013 0855 ------- ------- ------- ------- -- Med refill - Stone - [phone] (618) SANA GONZALEZ 04/[address] [place] [address])(S cott Interna l Medicin e Tm) [address] [place] [address])([facility] ) TELE CONSULT [id number] Notes Entered by: ALTON SMITH 20 Apr 2013 0808 ------- ------- ------- ------- -- Ref quinn/ Meka/618 .229.19 59 SANA GONZALEZ 04/[address] [place] [address])(S cott Interna l Medicin e Tm) [address] [place] [address])([employer]) TELE CONSULT [id number] Notes Entered by: ALTON SMITH 20 Apr 2013 0811 ------- ------- ------- ------- -- Med renewal /618.22 9 KRISSY ANSARI 04/[address] [place] [address])(Niyah palumbo gy) [address] [place] [address])([employer]) TELE CONSULT [id number] Notes Entered by: EDI WARNER 2013 1348 ------- ------- ------- ------- -- results KARIS FERNANDES 04/[address] [place] [address])(Niyah palumbo gy) [address] [place] [address])([facility] ) TELE CONSULT [id number] Notes Entered by: CARMEN DEL VALLE 31 May 2013 0944 ------- ------- ------- ------- -- Network Results -ENDOCR INOLOGY 3 ARNOL STONE 05/[address] [place] [address])(S cott Interna l Medicin e Tm) [address] [place] [address])([facility] ) TELE CONSULT [id number] Notes Entered by: EMELY SARAH 23 Aug 2013 1405 ------- ------- ------- ------- -- Change Endocri nology provide rs SHYAM SARAH I 08/[address] [place] [address])(S cott Interna l Medicin e Tm) [address] [place] [address])([facility] ) TELE CONSULT [id number] Notes Entered by: LISSET DIMAS 10 Sep 2013 0832 ------- ------- ------- ------- -- Records request -Meka/Joanne [id number] SHYAM SARAH I 09/[address] [place] [address])(S cott Interna l Medicin e Tm) [address] [place] [address])([facility] ) OUTPATIENT [id number] muscle, joint pain all over body [id number] ARNOL STONE 09/28 Released w/o Limitations [address] [place] [address])(S cott Interna l Medicin e Tm) [address] [place] [address])([facility] ) OUTPATIENT [id number] f/u for labwork [id number] ARNOL STONE 10/08 Released w/o Limitations [address] [place] [address])(S cott Interna l Medicin e Tm) [address] [place] [address])([facility] ) TELE CONSULT [id number] Notes Entered by: VAL AVINA 30 Nov 2013 1025 ------- ------- ------- ------- -- Network Results -RHEUMA TOLOGY 11/26/13 ARNOL STONE 11/[address] [place] [address] [facility])(S cott Interna l Medicin e Tm) [address] [place] [address])([facility] ) OUTPATIENT [id number] numbnes s on right side in arm and hand- pinched nerve- X 2 days- [id number] ARNOL STONE 02/26 Released w/o Limitations [address] [place] [address])(S cott Interna l Medicin e Tm) [address] [place] [address])([facility] ) TELE CONSULT [id number] Notes Entered by: ALTON SMITH 07 Mar 2014 0908 ------- ------- ------- ------- -- SX - STAT MRI order/C ox/618. 229.491 3 pt or of pt* GAVINO DESAI 03/[address] [place] [address])(S cott Interna l Medicin e Tm) [address] [place] [address])([employer]) TELE CONSULT [id number] Notes Entered by: TRISTAN LORD 29 Apr 2014 0833 ------- ------- ------- ------- -- Med refill [phone] KARIS FERNANDES 04/[address] [place] [address])(Niyah palumbo gy) [address] [place] [address])([employer]) OUTPATIENT [id number] well and med refill 229.217 3 TRE WARNER 05/01 Released w/o Limitations [address] [place] [address])(G ynecolo gy) [address] [place] [address])([employer]) TELE CONSULT [id number] Notes Entered by: EDI WARNER 02 May 2014 1708 ------- ------- ------- ------- -- results KARIS FERNANDES 05/[address] [place] [address])(G ynecolo gy) [address] [place] [address])([facility] Internal Medicine Tm) TELE CONSULT [id number] Notes Entered by: Stanford ROBB 13 Jun 2014 1240 ------- ------- ------- ------- -- Pat request s to talk with nurse about Neuro surgeon /[facility]/ [phone] SANA GONZALEZ 06/[address] [place] [address])(S cott Interna l Medicin e Tm) [address] [place] [address])([facility] Internal Medicine Tm) TELE CONSULT [id number] Notes Entered by: Dale ROBB 18 Jun 2014 0917 ------- ------- ------- ------- -- Roni ely Dr 229.491 3 GAVINO DESAI 06/[address] [place] [address])(S cott Interna l Medicin e Tm) [address] [place] [address])([facility] tt Internal Medicine Tm) TELE CONSULT [id number] Notes Entered by: VAL AVINA 24 Jun 2014 1319 ------- ------- ------- ------- -- Network Results -CANDEA JACQUESOGAnabel 05/14/14 VASILIY MCKENZIE 06/[address] [place] [address])(S cott Interna l Medicin e Tm) [address] [place] [address])([facility] ) TELE CONSULT [id number] Notes Entered by: OLIMPIA METCALF ELS 10 Jul 2014 1247 ------- ------- ------- ------- -- NeuroSu rgbert ely//Man pastrana/ /229.49 13 or 505.001 1 GAVINO DESAI 07/[address] [place] [address])(S cott Interna l Medicin e Tm) [address] [place] [address])([facility] ) TELE CONSULT [id number] Notes Entered by: GAVINO DESAI 16 Jul 2014 1449 ------- ------- ------- ------- -- Neurosu GAVINO Delgadillo 07/[address] [place] [address])(S cott Interna l Medicin e Tm) [address] [place] [address])([facility] ) TELE CONSULT [id number] Notes Entered by: BRONWYN DOBBS 19 Aug 2014 1604 ------- ------- ------- ------- -- Network Results -SURGER Y 08/15/14 RICARDA HARRY 08/[address] [place] [address])(S cott Interna l Medicin e Tm) [address] [place] [address])([facility] ) TELE CONSULT [id number] Notes Entered by: VAL AVINA 04 Sep 2014 1155 ------- ------- ------- ------- -- Network Results -ORTHOP EDICS 03/05/14 , 03/08/14 , 4, 03/08/14 , 03/12/14 & 06/11/14 RICARDA HARRY 09/[address] [place] [address])(S cott Interna l Medicin e Tm) [address] [place] [address])([facility] ) TELE CONSULT [id number] Notes Entered by: TOBY MERIDA 29 Nov 2014 0943 ------- ------- ------- ------- -- Endocri nology referra l renewal request ed by PT ASHLIE MERIDA 11/29 Referred for Appointment [address] [place] [address])(S cott Interna l Medicin e Tm) [address] [place] [address])([facility] ) TELE CONSULT [id number] Notes Entered by: CIRO LANGFORD 03 Jan 2015 1053 ------- ------- ------- ------- -- Please Network results -Endocr inology 015 MIRZA MIRANDA V 01/[address] [place] [address])(S cott Interna l Medicin e Tm) [address] [place] [address])([facility] ) TELE CONSULT [id number] Notes Entered by: Stanford ROBB 15 Apr 2015 0856 ------- ------- ------- ------- -- Referra l renewal /Fina /[phone] ELIER CHAN 04/[address] [place] [address])(S cott Interna l Medicin e Tm) [address] [place] [address])([facility] ) OUTPATIENT [id number] ANNUAL PCM VISIT, NEEDS REFERRA L RENEWAL MIRZA MIRANDA V 04/16 Released w/o Limitations [address] [place] [address])(S cott Interna l Medicin e Tm) [address] [place] [address])([facility] ) OUTPATIENT [id number] f/u BP Elevati on MIRZA MIRANDA V 04/30 Released w/o Limitations [address] [place] [address])(S cott Interna l Medicin e Tm) [address] [place] [address])([facility] ) TELE CONSULT [id number] Notes Entered by: OLIMPIA METCALF ELS 23 Jun 2015 0829 ------- ------- ------- ------- -- Bone Density Test Results , Med Renewal //Vikram godfrey//229 .4913 SANA GONZALEZ 06/[address] [place] [address])(S cott Interna l Medicin e Tm) [address] [place] [address])([facility] ) TELE CONSULT [id number] Notes Entered by: CIRO LANGFORD 08 Jul 2015 0932 ------- ------- ------- ------- -- Network results -Endocr inology 015 COREY CALDERON V 07/[address] [place] [address])(S cott Interna l Medicin e Tm) [address] [place] [address])([facility] ) TELE CONSULT [id number] Notes Entered by: WILBUR CRABTREE 30 Jul 2015 0756 ------- ------- ------- ------- -- Network Results -RHEUMA TOLOGY 07/22/15 COREY CALDERON V 07/[address] [place] [address])(S cott Interna l Medicin e Tm) [address] [place] [address])([facility] ) TELE CONSULT [id number] Notes Entered by: Faith JAMES 28 Aug 2015 1250 ------- ------- ------- ------- -- Flu Shot ? / Salomon / SANA GONZALEZ 08/[address] [place] [address])(S cott Interna l Medicin e Tm) [address] [place] [address])([facility] ) TELE CONSULT [id number] Notes Entered by: STEPHEN RAMOS 26 Jul 2016 1012 ------- ------- ------- ------- -- Referra l Renewal Request /Alyssa /229.19 59 JOSE MA Jhoana 07/26 Referred for Appointment [address] [place] [address] [facility])(S cott Interna l Medicin e Tm) [address] [place] [address])([facility] Internal Medicine ) OUTPATIENT [id number] BP f/u and medicat ions 229.195 9 FERNANDO SHAH 07/26 Released w/o Limitations [address] [place] [address] [employer] ([facility] cott Interna l Medicin e Tm) [address] [place] [address])([facility] ) TELE CONSULT [id number] Notes Entered by: FERNANDO SHAH 28 Jul 2016 1618 ------- ------- ------- ------- -- Lab results DARRYL CLEMENTS 07/28 Referred for Appointment [address] [place] [address] [facility])(S cott Interna l Medicin e Tm) [address] [place] [address])([facility] ) TELE CONSULT [id number] Notes Entered by: CIRO LANGFORD 15 Sep 2016 0754 ------- ------- ------- ------- -- Network results Endocri nology 016 FERNANDO DOLAN 09/[address] [place] [address])(S cott Interna l Medicin e Tm) [address] [place] [address])([facility] ) TELE CONSULT [id number] Notes Entered by: BRONWYN DOBBS 01 Nov 2016 1310 ------- ------- ------- ------- -- Network Results RHEUMAT OLOGY 08/12/16 MICHEAL SHAH, FERNANDO 11/[address] [place] [address])(S cott Interna l Medicin e Tm) [address] [place] [address])([facility] Internal [facility]) TELE CONSULT [id number] Notes Entered by: JACINTO BURT 27 Jan 2017 0749 ------- ------- ------- ------- -- Angela Calderon - DARRYL Alan 01/27 Referred for Appointment [employer] [facility])(S cott Interna l Medicin e Tm) [facility])([facility] ) TELE CONSULT [id number] Notes Entered by: YESENIA HAMMER 04 Feb 2017 0958 ------- ------- ------- ------- -- Network Results [facility] 7 COREY ASHFORD V 02/04 [facility])(S cott Interna l Medicin e Tm) [facility])([facility] ) TELE CONSULT [id number] Notes Entered by: ANDRÉS GONZALES RET 08 Feb 2017 0728 ------- ------- ------- ------- -- SX:Anibal i Symptom antonio/Vikram godfrey/618. 505.001 1 [facility] DARRYL CLEMENTS 02/08 Referred for Appointment [employer] [place] [facility])(S cott Interna l Medicin e Tm) [facility])([facility] Internal Medicine ) TELE CONSULT [id number] Notes Entered by: SCOUT SMITH 10 May 2017 0742 ------- ------- ------- ------- -- Update Roni ely Request - Appt Jul / Nelly / [phone] 7 / 505-001 1 - KAJAL Barbosa 05/10 Referred for Appointment [address] [employer] [facility])(S cott Interna l Medicin e Tm) [facility] Medical [facility])([facility] Internal Medicine ) TELE CONSULT [id number] Notes Entered by: STEPHEN RAMOS 30 Aug 2017 1021 ------- ------- ------- ------- -- Med Philippe /Pankaj medellin/229.5 037 or 505.001 1 ELIER CHAN 08/[address] [place] [address])(S cott Interna l Medicin e Tm) [address] [place] [address])([facility] ) TELE CONSULT [id number] Notes Entered by: DANIELLE RDZ 02 Sep 2017 1139 ------- ------- ------- ------- -- Network results Endocri nology 7 [facility] SANDRA ROWLAND 09/[address] [place] [address])(S [facility] Interna l Medicin e Tm) [address] [place] [address])([employer]) OUTPATIENT [id number] annual well-wo man exam / 229.503 7 YADIRA PALMA 10/11 Released w/o Limitations [address] [place] [address])(G yrolly gy) [address] [place] [address])([employer]) TELE CONSULT [id number] Notes Entered by: CALVIN PALMA 12 Oct 2017 0859 ------- ------- ------- ------- -- Test results KARIS FERNANDES 10/[address] [place] [address])(G linwood gy) [address] [place] [address])([facility] ) TELE CONSULT [id number] Notes Entered by: Faith JAMES 14 Dec 2017 0954 ------- ------- ------- ------- -- Med Philippe / Alyssa/ [phone] or [phone] 1 hig - aj ELIER CHAN 12/[address] [place] [address])(S cott Interna l Medicin e Tm) [address] [place] [address])([facility] ) OUTPATIENT [id number] Med FERNANDO Mosqueda 12/15 Released w/o Limitations [address] [place] [address])(S cott Interna l Medicin e Tm) [address] [place] [address])([employer]) TELE CONSULT [id number] Notes Entered by: WILBUR CRABTREE 05 Jan 2018 1255 ------- ------- ------- ------- -- Network Results -RADIOL OGY 11/22/17 BONE DENSITY SDG KARIS FERNANDES 01/[address] [place] [address])(G ynecolo gy) [address] [place] [address])([facility] ) TELE CONSULT [id number] Notes Entered by: JACINTO BURT 06 Feb 2018 1305 ------- ------- ------- ------- -- Roni Shah - [phone] -[phone] - [facility] ELIER CHAN 02/[address] [place] [address])(S cott Interna l Medicin e Tm) [address] [place] [address])([facility] ) TELE CONSULT [id number] Notes Entered by: SUN TYLER 23 Feb 2018 0724 ------- ------- ------- ------- -- ER Refusal -SX - R Thumb pain - Auto Acciden gutierrez/ Alyssa/ [phone] - ELIER Kirby 02/[address] [place] [address])(S cott Interna l Medicin e Tm) [address] [place] [address])([facility] ) OUTPATIENT [id number] Trauma right thumb X 1 week FERNANDO SHAH 02/24 Released w/o Limitations [address] [place], [place] [address])([facility] cott Interna l Medicin e Tm) [address] [place] [address])([facility] ) TELE CONSULT [id number] Notes Entered by: SCOUT SMITH 10 Aug 2018 1335 ------- ------- ------- ------- -- Referra l Renewal - Appt Aug / Shah / [phone] / [phone] 1 - sgj ELIER CHAN 08/10 Released w/o Limitations [address] [place] [address])([facility] cott Interna l Medicin e Tm) [address] [place] [address])([facility] ) TELE CONSULT [id number] 7 Notes Entered by: SHIN LAGOS 16 Oct 2018 0842 ------- ------- ------- ------- -- Request labs/ra diology - Med Refill - Shah - [phone] -[phone] 1vbch ELIER CHAN 10/16 Medication Refill Forwarded [address] [place] [address])([facility] Interna l Medicin e Tm) [address] [place] [address])([facility] ) OUTPATIENT [id number] 7 f/u on meds, blood pressur e, 229.503 7 FERNANDO SHAH 02/16 Released w/o Limitations [address] [place] [address])([facility] cott Interna l Medicin e Tm) [address] [place] [address])([facility] ) TELE CONSULT [id number] Notes Entered by: ANDRÉS GONZALES RET 03 Jul 2019 1208 ------- ------- ------- ------- -- Ref Renewal Endo/ ight/61 8.229.5 037 ELIER CHAN 07/03 Other Not Elsewhere Classified [address] [place] [address])(S cott Interna l Medicin e Tm) [address] [place] [address])([facility] ) TELE CONSULT [id number] Notes Entered by: EPHRAIM GAITAN 07 May 2020 0705 ------- ------- ------- ------- -- SX Rash/ RX & phone call request / Sandra s/ ELIER CHAN 05/07 Referred for Appointment [address] [place] [address])([facility] cott Interna l Medicin e Tm) [address] [place] [address])([facility] ) OUTPATIENT [id number] Rash X 1 week OMID WHITAKER SHINE 05/07 Released w/o Limitations [address] [place] [address])([facility] cott Interna l Medicin e Tm) [address] [place] [address])([facility] ) OUTPATIENT [id number] F/u Hyperte nsion SHERMAN OMID RIOJAS 05/07 Released w/o Limitations [address] [place] [address])([facility] cott Interna l Medicin e Tm) [address] [place] [address])([facility] ) TELE CONSULT [id number] Notes Entered by: WHITAKEROMID ROSS 21 May 2020 1538 ------- ------- ------- ------- -- Rash F/U SHERMAN OMID RIOJAS 05/[address] [place] [address])([facility] cott Interna l Medicin e Tm) [address] [place] [address])([facility] ) OUTPATIENT [id number] Virtual -Conges tion-R Ear pressur e-clogg ed-OTC with No relief DARCY CHEN 07/10 Released w/o Limitations [address] [place] [address])([facility] cott Interna l Medicin e Tm) [address] [place] [address])([facility] ) TELE CONSULT [id number] Notes Entered by: JACINTO BURT 11 Aug 2020 0833 ------- ------- ------- ------- -- Sx: Back pain/Sp asms - ER F/U - sooner appt - [facility] - - tsg* ELIER CHAN Faith 08/11 Other Not Elsewhere Classified [address] [place] [address])(S cott Interna l Medicin e Tm) [address] [place] [address])([facility] ) OUTPATIENT [id number] VIRTUAL - Anderso n ER F/U - Back pain, muscle spasms DARCY CHEN 08/11 Released w/o Limitations [address] [place] [address])(S cott Interna l Medicin e Tm) [address] [place] [address])([facility] ) TELE CONSULT [id number] Notes Entered by: AZAM HIDALGO 19 Aug 2020 0824 ------- ------- ------- ------- -- Network results Physica l Therapy 020 DRACY HERNANDEZ 08/[address] [place] [address])([facility] cott Interna l Medicin e Tm) [address] [place] [address])([facility] ) TELE CONSULT [id number] Notes Entered by: JADA CONKLIN 15 Sep 2020 1003 ------- ------- ------- ------- -- roni silva /garrett murray/[phone] EDIS Tran 09/15 Other Not Elsewhere Classified [address] [place] [address] [facility])(S cott Interna l Medicin e Tm) [address] [place] [address])([facility] ) TELE CONSULT [id number] 1 Notes Entered by: AZAM HIDALGO 02 Oct 2020 1029 ------- ------- ------- ------- -- Network results Physica l Therapy 020 DARCY HERNANDEZ 10/[address] [place] [address] Group [place])(S cott Interna l Medicin e Tm) [address] [place] [address] [facility])(Fam hakan Med Tm B Non-AD BCC) TELE CONSULT [id number] Notes Entered by: JADA CONKLIN 22 Sep 2021 1423 ------- ------- ------- ------- -- referra jhoana silva /ananya alvarez/[phone] SACHA Wu 09/22 Immediate Referral [address] [place] [address] [facility] [facility])(F amily Med Tm B Non-AD BCC) [address] [place] [address] [facility])(Fam hakan Med Tm B Non-AD BCC) TELE CONSULT [id number] Notes Entered by: JACINTO BURT 02 Oct [id number] ------- ------- ------- ------- -- Rx renewal - Sofya - - [facility] IVONNE RIVERO 10/02 Referred for Appointment [address] [place] [address] [facility])(F amily Med Tm B Non-AD BCC) [address] [place] [address] [facility]Fam hakan Med Tm B Non-AD BCC) OUTPATIENT [id number] F2F/scot ual exam MERY MCKAY 10/13 Released w/o Limitations [address] [place] [address] [facility]F amily Med Tm B Non-AD BCC) [address] [place] [address] [facility]Fam hakan Med Tm B Non-AD BCC) TELE CONSULT [id number] Notes Entered by: SUN TYLER 21 Oct 202104 ------- ------- ------- ------- -- Medicat ion Change Inquiry - Roni ely Req- Special ist F/U/ Sofya / MERY MCKAY 10/[address] [place] [address] [facility]F amily Med Tm B Non-AD BCC) [address] [place] [address] [facility])([facility] hakan Med Tm B Non-AD BCC) TELE CONSULT [id number] Notes Entered by: Logan ABRAHAM 23 Oct 2021 1419 ------- ------- ------- ------- -- Network results Endocri nology 021 MERY CALLAHAN 10/[address] [place] [address] [facility])(F amily Med Tm B Non-AD BCC) [address] [place] [address] [facility])([facility] hakan Med Tm B Non-AD BCC) OUTPATIENT [id number] F2F blood pressur e monitor ing and referra l for sleep JODY LAM OPENFaith 11/25 Released w/o Limitations [address] [place] [address] [facility])(F amily Med Tm B Non-AD BCC) [address] [place] [address] [facility])(Fam ahkan Med Tm B Non-AD BCC) TELE CONSULT [id number] Notes Entered by: SACHA MONDRAGON 22 Dec 2021 1209 ------- ------- ------- ------- -- Direct Call/pu lm refer l/SACHA Wheeler 12/22 Immediate Referral [address] [place] [address] [facility])(F amily Med Tm B Non-AD BCC) [address] [place] [address] [facility])(Fam hakan Med Tm B Non-AD BCC) OUTPATIENT [id number] referra l request [phone] MERY MCKAY 02/15 Released w/o Limitations [address] [place] [address] [facility])(F amily Med Tm B Non-AD BCC) [address] [place] [address] [facility])(Fam hakan Med Tm B Non-AD BCC) TELE CONSULT [id number] 3 Notes Entered by: AZAM HIDALGO 23 Feb 2022 0855 ------- ------- ------- ------- -- Network results Physica l Therapy 022 KSP MERY MCKAY 02/[address] [place] [address] [facility])(F amily Med Tm B Non-AD BCC) [address] [place] [address] [facility])(Fam hakan Med Tm B Non-AD BCC) TELE CONSULT [id number] 3 Notes Entered by: SUYAPA BRANHAM 08 Apr 2022 0916 ------- ------- ------- ------- -- Network results Physica l Therapy 022 LSMERY BRAND 04/[address] [place] [address] [facility])(F amily Med Tm B Non-AD BCC) [address] [place] [address] [facility])(Fam hakan Med Tm B Non-AD BCC) OUTPATIENT [id number] F2F - sinus pressur e, cough, x 5 wks Home COVID neg DERREK LAROSE 11/09 Released w/o Limitations [address] [place] [address] [facility])(F amily Med Tm B Non-AD BCC) [address] [place] [address] [facility])(Fam hakan Med Tm B Non-AD BCC) TELE CONSULT [id number] Notes Entered by: DONNIE BARKLEY 01 Dec 2022 0856 ------- ------- ------- ------- -- Referra ely Renewal Request /Ananya s/ CLEMENT PAZ 12/01 Other Not Elsewhere Classified [address] [place] [address] [facility])(F amily Med Tm B Non-AD BCC) Procedures Combined list of: 1) Procedures from Department of Veterans Affairs facilities going back up to thelast 18 months, not all VA non-surgical procedures are included; 2) All procedures from the Department of Defense facilities. Procedure Procedure Type Code Date Perfomer Comments Sourc e No data available for this section [facility] Non-Physician Phone Call To Patient/Provider Brief (5-10min) Non-Physician Phone Call To Patient/Provider Brief (5-10min) [phone] ELIER CHAN [facility] Non-Physician Phone Call To Patient/Provider Brief (5-10min) Non-Physician Phone Call To Patient/Provider Brief (5-10min) [phone] ELIER CHAN [facility] Non-Physician Phone Call To Patient/Provider Brief (5-10min) Non-Physician Phone Call To Patient/Provider Brief (5-10min) [phone] ELIER CHAN [facility] Non-Physician Phone Call To Patient/Provider Brief (5-10min) Non-Physician Phone Call To Patient/Provider Brief (5-10min) [phone] ELIER CHAN [facility] Screening papanicolaou smear; obtaining, preparing and conveyance of cervical or vaginal smear to laboratory 017 YADIRA PALMA [facility] Non-Physician Phone Call To Patient/Provider Brief (5-10min) Non-Physician Phone Call To Patient/Provider Brief (5-10min) [phone] ELIER CHAN [facility] Non-Physician Phone Call To Patient/Provider Brief (5-10min) Non-Physician Phone Call To Patient/Provider Brief (5-10min) [phone] KAJAL STRICKLAND [facility] Non-Physician Phone Call To Patient/Provider Brief (5-10min) Non-Physician Phone Call To Patient/Provider Brief (5-10min) [phone] DARRYL CLEMENTS [facility] Non-Physician Phone Call To Patient/Provider Brief (5-10min) Non-Physician Phone Call To Patient/Provider Brief (5-10min) [phone] DARRYL CLEMENTS [facility] Non-Physician Phone Call To Patient/Provider Brief (5-10min) Non-Physician Phone Call To Patient/Provider Brief (5-10min) [phone] SANA GONZALEZ [facility] Non-Physician Phone Call To Patient/Provider Brief (5-10min) Non-Physician Phone Call To Patient/Provider Brief (5-10min) [phone] JOSUÉ GONZALEZ [facility] Non-Physician Phone Call To Patient/Provider Brief (5-10min) Non-Physician Phone Call To Patient/Provider Brief (5-10min) [phone] ASHLIE MERIDA [facility] Non-Physician Phone Call To Patient/Provider Brief (5-10min) Non-Physician Phone Call To Patient/Provider Brief (5-10min) [phone] GAVINO DESAI Non-Physician Phone Call To Patient/Provider Brief (5-10min) Non-Physician Phone Call To Patient/Provider Brief (5-10min) [phone] GAVINO DESAI Non-Physician Phone Call To Patient/Provider Brief (5-10min) Non-Physician Phone Call To Patient/Provider Brief (5-10min) [phone] GAVINO DESAI Non-Physician Phone Call To Pt/Provider Intermed (11-20 min) Non-Physician Phone Call To Pt/Provider Intermed (11-20 min) [phone] SANA GONZALEZ [facility] Non-Physician Phone Call To Patient/Provider Brief (5-10min) Non-Physician Phone Call To Patient/Provider Brief (5-10min) [phone] GAVINO DESAI Cervical or vaginal cancer screening; pelvic and clinical breast examination 013 TRE WANRER Screening papanicolaou smear; obtaining, preparing and conveyance of cervical or vaginal smear to laboratory 013 TRE WARNER Physician Supervised Injection Intramuscular Physician Supervised Injection Intramuscular [phone] KI MIRELES Patient identified. Patient recieved IM injection of toradol 60mg/2ml (lot number [id number]/exp date 14 Jun 2012 in right upper outer glut. Patient tolerated procedure well. Awaiting reassessment DoD A e ment & Intervention Blood Pre ure Measured 010 EVE GARCIA [facility] A e ment & Intervention Blood Pre ure Measured 010 EVE GARCIA Screening papanicolaou smear; obtaining, preparing and conveyance of cervical or vaginal smear to laboratory 006 CIRO PERRY [facility] Patient Training And Self-Care Skills Patient Training And Self-Care Skills [id number] 004 DYLAN HUSSEIN Modalities Heat Hot Packs Modalities Heat Hot Packs 97232 004 DYLAN HUSSEIN Modalities Ultrasound Modalities Ultrasound 61803 004 DYLAN HUSSEIN Occupational Therapy Re-Evaluation Occupational Therapy Re-Evaluation 76867 004 IVETTE GEORGE Patient Training And Self-Care Skills Patient Training And Self-Care Skills 43788 004 LEONARDO GALLEGOS Orthopedic Splinting Short Arm Orthopedic Splinting Short Arm 88635 004 LEONARDO GALLEGOS Addition to upper extremity orthosis, sock, fracture or equal, each 004 GAVINO FELIX Patient Training And Self-Care Skills Patient Training And Self-Care Skills 95057 004 GAVINO FELIX WHO, wrist gauntlet, molded to patient model, custom fabricated 004 GAVINO FELIX Non-Physician Phone Call To Patient/Provider Brief (5-10min) Non-Physician Phone Call To Patient/Provider Brief (5-10min) [phone] SACHA MONDRAGON [facility] Non-Physician Phone Call To Pt/Provider Intermed (11-20 min) Non-Physician Phone Call To Pt/Provider Intermed (11-20 min) [id number] MERY MCKAY Preventive Medicine Services: Counseling/Educatio n On Self-Care Preventive Medicine Services: Counseling/Educa tion On Self-Care [id number] DERREK LAROSE [facility] SELF-CARE EDUCATION PROVIDED TO PATIENT (HF) 022 [facility] TELE ASSESS & MGT SRV PROV QUAL NONPHYS HLTH CARE PRO TO EST PAT,PARENT,GUARD NOT ORIG REL ASSESS & MGT SRV PROV W/IN PREV 7 DAYS NOR LEAD ASSESS & MGT SRV/PX W/IN NXT 24 HR/SOON APT;5-10 MIN MED DIS 022 [facility] TELE ASSESS & MGT SRV PROV QUAL NONPHYS HLTH CARE PRO TO EST PAT,PARENT,GUARD NOT ORIG REL ASSESS & MGT SRV PROV W/IN PREV 7 DAYS NOR LEAD ASSESS & MGT SRV/PX W/IN NXT 24H/SOON APT; 11-20 MIN MED DIS 021 DoD TELE ASSESS & MGT SRV PROV QUAL NONPHYS HLTH CARE PRO TO EST PAT,PARENT,GUARD NOT ORIG REL ASSESS & MGT SRV PROV W/IN PREV 7 DAYS NOR LEAD ASSESS & MGT SRV/PX W/IN NXT 24 HR/SOON APT;5-10 MIN MED DIS 021 DoD TELE ASSESS & MGT SRV PROV QUAL NONPHYS HLTH CARE PRO TO EST PAT,PARENT,GUARD NOT ORIG REL ASSESS & MGT SRV PROV W/IN PREV 7 DAYS NOR LEAD ASSESS & MGT SRV/PX W/IN NXT 24 HR/SOON APT;5-10 MIN MED DIS 021 DoD WAIVER SERVICES; NOT OTHERWISE SPECIFIED (NOS) DoD WAIVER SERVICES; NOT OTHERWISE SPECIFIED (NOS) 020 DoD TELE ASSESS & MGT SRV PROV QUAL NONPHYS HLTH CARE PRO TO EST PAT,PARENT,GUARD NOT ORIG REL ASSESS & MGT SRV PROV W/IN PREV 7 DAYS NOR LEAD ASSESS & MGT SRV/PX W/IN NXT 24 HR/SOON APT;5-10 MIN MED DIS 018 DoD TELE ASSESS & MGT SRV PROV QUAL NONPHYS HLTH CARE PRO TO EST PAT,PARENT,GUARD NOT ORIG REL ASSESS & MGT SRV PROV W/IN PREV 7 DAYS NOR LEAD ASSESS & MGT SRV/PX W/IN NXT 24 HR/SOON APT;5-10 MIN MED DIS 018 DoD TELE ASSESS & MGT SRV PROV QUAL NONPHYS HLTH CARE PRO TO EST PAT,PARENT,GUARD NOT ORIG REL ASSESS & MGT SRV PROV W/IN PREV 7 DAYS NOR LEAD ASSESS & MGT SRV/PX W/IN NXT 24 HR/SOON APT;5-10 MIN MED DIS 018 DoD TELE ASSESS & MGT SRV PROV QUAL NONPHYS HLTH CARE PRO TO EST PAT,PARENT,GUARD NOT ORIG REL ASSESS & MGT SRV PROV W/IN PREV 7 DAYS NOR LEAD ASSESS & MGT SRV/PX W/IN NXT 24 HR/SOON APT;5-10 MIN MED DIS 018 DoD SCREENING PAPANICOLAOU SMEAR; OBTAINING, PREPARING AND CONVEYANCE OF CERVICAL OR VAGINAL SMEAR TO LABORATORY 017 DoD TELE ASSESS & MGT SRV PROV QUAL NONPHYS HLTH CARE PRO TO EST PAT,PARENT,GUARD NOT ORIG REL ASSESS & MGT SRV PROV W/IN PREV 7 DAYS NOR LEAD ASSESS & MGT SRV/PX W/IN NXT 24 HR/SOON APT;5-10 MIN MED DIS 017 DoD TELE ASSESS & MGT SRV PROV QUAL NONPHYS HLTH CARE PRO TO EST PAT,PARENT,GUARD NOT ORIG REL ASSESS & MGT SRV PROV W/IN PREV 7 DAYS NOR LEAD ASSESS & MGT SRV/PX W/IN NXT 24 HR/SOON APT;5-10 MIN MED DIS 017 DoD TELE ASSESS & MGT SRV PROV QUAL NONPHYS HLTH CARE PRO TO EST PAT,PARENT,GUARD NOT ORIG REL ASSESS & MGT SRV PROV W/IN PREV 7 DAYS NOR LEAD ASSESS & MGT SRV/PX W/IN NXT 24 HR/SOON APT;5-10 MIN MED DIS 017 DoD TELE ASSESS & MGT SRV PROV QUAL NONPHYS HLTH CARE PRO TO EST PAT,PARENT,GUARD NOT ORIG REL ASSESS & MGT SRV PROV W/IN PREV 7 DAYS NOR LEAD ASSESS & MGT SRV/PX W/IN NXT 24 HR/SOON APT;5-10 MIN MED DIS 017 DoD TELE ASSESS & MGT SRV PROV QUAL NONPHYS HLTH CARE PRO TO EST PAT,PARENT,GUARD NOT ORIG REL ASSESS & MGT SRV PROV W/IN PREV 7 DAYS NOR LEAD ASSESS & MGT SRV/PX W/IN NXT 24 HR/SOON APT;5-10 MIN MED DIS 015 DoD TELE ASSESS & MGT SRV PROV QUAL NONPHYS HLTH CARE PRO TO EST PAT,PARENT,GUARD NOT ORIG REL ASSESS & MGT SRV PROV W/IN PREV 7 DAYS NOR LEAD ASSESS & MGT SRV/PX W/IN NXT 24 HR/SOON APT;5-10 MIN MED DIS 015 DoD TELE ASSESS & MGT SRV PROV QUAL NONPHYS HLTH CARE PRO TO EST PAT,PARENT,GUARD NOT ORIG REL ASSESS & MGT SRV PROV W/IN PREV 7 DAYS NOR LEAD ASSESS & MGT SRV/PX W/IN NXT 24 HR/SOON APT;5-10 MIN MED DIS 015 DoD TELE ASSESS & MGT SRV PROV QUAL NONPHYS HLTH CARE PRO TO EST PAT,PARENT,GUARD NOT ORIG REL ASSESS & MGT SRV PROV W/IN PREV 7 DAYS NOR LEAD ASSESS & MGT SRV/PX W/IN NXT 24 HR/SOON APT;5-10 MIN MED DIS 014 DoD TELE ASSESS & MGT SRV PROV QUAL NONPHYS HLTH CARE PRO TO EST PAT,PARENT,GUARD NOT ORIG REL ASSESS & MGT SRV PROV W/IN PREV 7 DAYS NOR LEAD ASSESS & MGT SRV/PX W/IN NXT 24 HR/SOON APT;5-10 MIN MED DIS 014 DoD TELE ASSESS & MGT SRV PROV QUAL NONPHYS HLTH CARE PRO TO EST PAT,PARENT,GUARD NOT ORIG REL ASSESS & MGT SRV PROV W/IN PREV 7 DAYS NOR LEAD ASSESS & MGT SRV/PX W/IN NXT 24 HR/SOON APT;5-10 MIN MED DIS 014 DoD TELE ASSESS & MGT SRV PROV QUAL NONPHYS HLTH CARE PRO TO EST PAT,PARENT,GUARD NOT ORIG REL ASSESS & MGT SRV PROV W/IN PREV 7 DAYS NOR LEAD ASSESS & MGT SRV/PX W/IN NXT 24H/SOON APT; 11-20 MIN MED DIS 014 DoD TELE ASSESS & MGT SRV PROV QUAL NONPHYS HLTH CARE PRO TO EST PAT,PARENT,GUARD NOT ORIG REL ASSESS & MGT SRV PROV W/IN PREV 7 DAYS NOR LEAD ASSESS & MGT SRV/PX W/IN NXT 24 HR/SOON APT;5-10 MIN MED DIS 014 DoD CERVICAL OR VAGINAL CANCER SCREENING; PELVIC AND CLINICAL BREAST EXAMINATION 013 DoD THERAPEUTIC, PROPHYLACTIC, OR DIAGNOSTIC INJECTION (SPECIFY SUBSTANCE OR DRUG); SUBCUTANEOUS OR INTRAMUSCULAR DoD BLOOD PRESSURE MEASURED (CKD)(DM) DoD BLOOD PRESSURE MEASURED (CKD)(DM) DoD BLOOD PRESSURE MEASURED (CKD)(DM) DoD BLOOD PRESSURE MEASURED (CKD)(DM) DoD BLOOD PRESSURE MEASURED (CKD)(DM) [facility] BLOOD PRESSURE MEASURED (CKD)(DM) [facility] BLOOD PRESSURE MEASURED (CKD)(DM) [facility] SCREENING PAPANICOLAOU SMEAR; OBTAINING, PREPARING AND CONVEYANCE OF CERVICAL OR VAGINAL SMEAR TO LABORATORY [facility] SELF-CARE/HOME MANAGMENT TRAIN (EG,ACT OF DAILY LIVING (ADL) &COMPENSAT TRAIN,MEAL PREPARATION,SAFETY PROCS,AND INSTRUCT IN USE OF ASST TECHNOLOGY DEV/ADPT EQUIP) DIR ONE-ON-ONE CONT,EA 15 MINUTES [facility] APPLICATION OF SHORT ARM SPLINT (FOREARM TO HAND); STATIC [facility] WRIST HAND ORTHOSIS, WITHOUT JOINTS, MAY INCLUDE SOFT INTERFACE, STRAPS, CUSTOM FABRICATED, INCLUDES FITTING AND ADJUSTMENT [facility] PSYCHOLOGICAL TESTING (INCLUDES PSYCHODIAGNOSTIC ASSESSMENT OF PERSONALITY PSYCHOPATHOLOGY, EMOTIONALITY, INTELLECTUAL ABILITIES, EG, WAIS-R, RORSCHACH, MMPI) WITH INTERPRETATION AND REPORT, PER HOUR [facility] INDIVIDUAL PSYCHOTHERAPY, INSIGHT ORIENTED, BEHAVIOR MODIFYING AND/OR SUPPORTIVE, IN AN OFFICE OR OUTPATIENT FACILITY, APPROXIMATELY 20 TO 30 MINUTES [id number] WITH THE PATIENT [facility] INTERACTIVE GROUP PSYCHOTHERAPY [facility] PSYCHOLOGICAL TESTING (INCLUDES PSYCHODIAGNOSTIC ASSESSMENT OF PERSONALITY PSYCHOPATHOLOGY, EMOTIONALITY, INTELLECTUAL ABILITIES, EG, WAIS-R, RORSCHACH, MMPI) WITH INTERPRETATION AND REPORT, PER HOUR [facility] INTERACTIVE GROUP PSYCHOTHERAPY [facility] INDIVIDUAL PSYCHOTHERAPY, INSIGHT ORIENTED, BEHAVIOR MODIFYING AND/OR SUPPORTIVE, IN AN OFFICE OR OUTPATIENT FACILITY, APPROXIMATELY 20 TO 30 MINUTES [id number] WITH THE PATIENT [facility] INTERACTIVE GROUP PSYCHOTHERAPY [facility] PSYCHOLOGICAL TESTING (INCLUDES PSYCHODIAGNOSTIC ASSESSMENT OF PERSONALITY PSYCHOPATHOLOGY, EMOTIONALITY, INTELLECTUAL ABILITIES, EG, WAIS-R, RORSCHACH, MMPI) WITH INTERPRETATION AND REPORT, PER HOUR [facility] INTERACTIVE GROUP PSYCHOTHERAPY [facility] INDIVIDUAL PSYCHOTHERAPY, INSIGHT ORIENTED, BEHAVIOR MODIFYING AND/OR SUPPORTIVE, IN AN OFFICE OR OUTPATIENT FACILITY, APPROXIMATELY 20 TO 30 MINUTES [id number] WITH THE PATIENT [facility] FAMILY PSYCHOTHERAPY (CONJOINT PSYCHOTHERAPY) (WITH PATIENT PRESENT), 50 MINUTES [facility] PSYCHOLOGICAL TESTING (INCLUDES PSYCHODIAGNOSTIC ASSESSMENT OF PERSONALITY PSYCHOPATHOLOGY, EMOTIONALITY, INTELLECTUAL ABILITIES, EG, WAIS-R, RORSCHACH, MMPI) WITH INTERPRETATION AND REPORT, PER HOUR [facility] PSYCHIATRIC DIAGNOSTIC INTERVIEW EXAMINATION [facility] MEDICAL NUTRITION THERAPY; GROUP (2 OR MORE INDIVIDUAL(S)), EACH 30 MINUTES [facility] SCREENING [place] SMEAR; OBTAINING, PREPARING AND CONVEYANCE OF CERVICAL OR VAGINAL SMEAR TO LABORATORY [facility] MEDICAL NUTRITION THERAPY; GROUP (2 OR MORE INDIVIDUAL(S)), EACH 30 MINUTES [facility] MEDICAL NUTRITION THERAPY; GROUP (2 OR MORE INDIVIDUAL(S)), EACH 30 MINUTES [facility] Social History Combined list of available smoking, tobacco, and other social history from [facility] facilities. Social History Type Response Date Comment [facility] e This section is an empty social history section. [facility] Assessment and Plan Combined list of future care activities from [facility] facilities (e.g., assessment and plan notes, appointments, orders, and referrals). Additional future care activities may be listed in the Plan of Care section. Result Assessment and Plan Date Source Assessment and Plan No data available for this section 11/18/2024 [facility] Functional Status Combined list of recent functional and cognitive assessments recorded at [facility] Functional [place] Measurement (FIM) Scale: 1 = Total Assistance (Subject = 0% +), 2 = Maximal Assistance (Subject = 25% +), 3 = Moderate Assistance (Subject = 50% +), 4 = Minimal Assistance (Subject = 75% +), 5 = Supervision, 6 = Modified [place] (Device), 7 = Complete [place] (Timely, Safely). Assessment Date/Time Source Assessment Type Assessment Skill Assessment Score Assessment Details No data available for this section
--- OUTSIDE RECORDS SUMMARY | 2024-11-18 05:02 | XMS_ITS | Continuity of Care Document ---
Author Name [facility] Organization [facility] Care Team Providers Care Unix Engineer Name Role Phone [facility] Unavailable Unavailable Problems Combined list of problems from Department of Defense and Veterans Affairs facilities. It does not include entries that were removed or entered in error. Problem Status Onset Date Problem Type Date of Resolution Comments Source Essential (primary) hypertension Active Condition DoD Other sleep apnea Active Condition DoD Encounter for general adult medical examination with abnormal findings Active Condition [facility] Preventive Medicine Established Patient Checkup Adult 40-64 Years Inactive Condition DoD visit for: laboratory Inactive Condition DoD muscle aches, generalized (myalgia) Active Condition [facility] Outpatient Physician Consultation Active Condition [facility] visit for: refer patient without exam or treatment Inactive Condition [facility] visit for: issue repeat prescription Inactive Condition [facility] sinusitis Active Condition [facility] vitamin D deficiency Active Condition [facility] thyroid disorders Active Condition DoD obesity Active Condition [facility] routine gynecological exam with cervical pap smear Inactive Condition [facility] visit for: screening exam for malignant neoplasm cervix Inactive Condition [facility] other specified viral disease Inactive Condition [facility] hypertension systemic Active Condition DoD joint pain, localized in the right shoulder Active Condition [facility] midback pain Active Condition [facility] visit for: administrative purpose Inactive Condition [facility] Combined Systolic And Diastolic Elevation Active Condition [facility] visit for: screening exam hypertension Inactive Condition [facility] Blood Pressure Isolated Elevated Active Condition [facility] shoulder sprain rotator cuff capsule right Active Condition [facility] cough Inactive Condition DoD upper respiratory infection Inactive Condition [facility] injury caused by animal bee sting hornets / wasps / bees Inactive Condition [facility] routine history and physical Active Condition - Pt with normal hx and physical except elevated BP (see below).- Pt just had mammo.- Pt not due for pap for one more year.- WIll check BMP as pt obese and at risk of DM.- Will check TSH and lipids.- Case discussed with Dr. Shaw. [facility] visit for: screening exam malignant neoplasm breast Inactive Condition - normal clinical breast exam.- pt due for next breast exam and mammogram in one year. [facility] essential hypertension Active Condition - No prior [...] reactions to drug (finding) [facility]ES active 3 [facility] amoxicillin Propensity to adverse reactions to drug Unknown Active Reaction( s): Unknown; Note: [facility] AMOXIL Drug allergy (disorder) Unknown active 3 [place] [address] Immunizations Combined list of available immunizations from the Department of Defense and Veterans Affairs facilities. Immunization Series Date Given Administered By Site Reaction Lot Number CVX Code Drug Manager Hvac Status Comments Source COVID-19, mRNA, LNP-S, PF, 100 mcg or 50 mcg dose 2021 [employer] (MOD) Not Given COVID-19, mRNA, LNP-S, PF, 100 mcg or 50 mcg dose [facility] SARS-CoV-2 (COVID-19) Ad26 vaccine, rec [id number] [place] [address] SARS-CoV- 2 (COVID-19 ) Ad26 vaccine, rec [...] DoD SARS-CoV-2 (COVID-19) Ad26 vaccine, rec 2020 [id number] complet ed SARS-CoV- 2 (COVID-19 ) Ad26 vaccine, rec 01/19/21 Given Ambulat ory Pharmac y SARS-CoV-2 (COVID-19) Ad26 vaccine, rec 2020 [id number] complet ed SARS-CoV- 2 (COVID-19 ) Ad26 vaccine, rec 01/19/21 Given Ambulat ory Pharmac y SARS-COV-2 (COVID-19) vaccine, vector non-replicati ng, recombinant spike protein-Ad26, preservative free, 0.5 mL 1 2020 Unknown, Provider [id number] [facility] (DERRICKN) complet ed SARS-COV- 2 [...] ory Pharmac y influenza virus vaccine,split [facility] [id number] 15 [employer] complet ed influenza virus vaccine,s plit 10/21/06 Given Ambulat ory Pharmac y influenza virus vaccine,split 2005 [id number] 15 [employer] complet ed influenza virus vaccine,s plit 10/21/06 Given Ambulat ory Pharmac y influenza virus vaccine, split virus (incl. purified surface antigen)-reti red CODE 1 2005 Unknown, Provider [id number] 15 [facility] (SKB) complet ed influenza virus vaccine, split virus (incl. purified surface antigen)- retired CODE [facility] virus [id number] sanofi pasteur complet ed influenza virus vaccine,s plit 10/01/05 Given Ambulat ory Pharmac y influenza virus vaccine, split virus (incl. purified surface antigen)-reti red CODE 1 2004 Unknown, Provider [id number] 15 Sanofi Pasteur (PMC) complet ed influenza virus vaccine, split virus (incl. purified surface antigen)- retired CODE [facility] influenza virus vaccine, whole virus 2002 zzLef t Arm [id number] 16 sanofi pasteur complet ed influenza virus vaccine, whole virus 10/22/03 Given Ambulat ory Pharmac y influenza virus vaccine, whole virus 2002 [id number] sanofi pasteur complet ed influenza virus vaccine, whole virus 10/22/03 Given Ambulat ory Pharmac y influenza virus vaccine, whole virus 1 2002 Unknown, Provider [id number] [facility] complet ed influenza virus vaccine, whole virus DoD influenza virus vaccine, whole virus 2001 [id number] 16 [facility] complet ed influenza virus vaccine, whole virus 09/18/02 Given Ambulat ory Pharmac y influenza virus vaccine, whole virus 2001 [id number] 16 [facility] complet ed influenza virus vaccine, whole virus 09/18/02 Given Ambulat ory Pharmac y influenza virus vaccine, whole virus 1 2001 Unknown, Provider [id number] [facility] complet ed influenza virus vaccine, whole virus DoD influenza virus vaccine, whole virus 2000 zzL t Arm [id number] 16 sanofi pasteur complet ed influenza virus vaccine, whole virus 09/13/01 Given Ambulat ory Pharmac y influenza virus vaccine, whole virus 1 2000 Unknown, Provider [id number] 16 [facility] complet ed influenza virus vaccine, whole virus DoD influenza virus vaccine, whole virus 2000 zzLef t Arm [id number] 16 [facility] complet ed influenza virus vaccine, whole virus 11/17/00 Given Ambulat ory Pharmac y influenza virus vaccine, whole virus 2000 [id number] 16 [facility] complet ed influenza virus vaccine, whole virus 11/17/00 Given Ambulat ory Pharmac y influenza virus vaccine, whole virus 1 2000 Unknown, Provider [id number] 16 [facility] ([facility]) complet ed influenza virus vaccine, whole virus DoD influenza virus vaccine, whole virus 1998 [id number] 16 [facility] complet ed influenza virus vaccine, whole virus 09/07/99 Given Ambulat ory Pharmac y tetanus-dipht h toxoids (Td) adult/adol 1998 [id number] [facility] complet ed tetanus-d iphth toxoids (Td) adult/ado l 09/07/99 Given Ambulat ory Pharmac y tuberculin purified protein derivative 1998 2506-11 96 [facility] Patient Tolerance : Negative Ambulat ory Pharmac y influenza virus vaccine, whole virus 1998 [id number] 16 [facility] complet ed influenza virus vaccine, whole virus 09/07/99 Given Ambulat ory Pharmac y tetanus-dipht h toxoids (Td) adult/adol 1998 [id number] 09 [facility] complet ed tetanus-d iphth toxoids (Td) adult/ado l 09/07/99 Given Ambulat ory Pharmac y tuberculin purified protein derivative 1998 2506-11 96 [facility] complet ed tuberculi n purified protein derivativ e 09/07/99 Given Ambulat ory Pharmac y tetanus and diphtheria toxoids, adsorbed, preservative free, for adult use (2 Lf of tetanus toxoid and 2 Lf of diphtheria toxoid) 1 1998 Unknown, Provider [id number] 09 [facility] ([facility] complet ed tetanus and diphtheri a toxoids, adsorbed, preservat betty free, for adult use (2 Lf of tetanus toxoid and 2 Lf of diphtheri a toxoid) DoD influenza virus vaccine, whole virus 1 1998 Unknown, Provider [id number] 16 [facility] ([facility]) complet ed influenza virus vaccine, whole virus DoD tuberculin skin test; purified protein derivative solution, intradermal 1 1998 Unknown, Provider [id number] 96 [facility] ([facility]) complet ed tuberculi n skin test; purified protein derivativ e solution, intraderm al DoD yellow fever vaccine 19982849 [id number] 37 [facility] complet ed yellow fever vaccine 03/18/99 Given Ambulat ory Pharmac y typhoid vaccine, live, oral 1998 992888. 1 25 [facility] [place] complet ed typhoid vaccine, live, oral 03/18/99 Given Ambulat ory Pharmac y yellow fever vaccine [id number] 37 [facility] complet ed yellow fever vaccine 03/18/99 Given Ambulat ory Pharmac y typhoid vaccine, live, oral 1998 [id number]. 1 25 [facility] [place] complet ed typhoid vaccine, live, oral 03/18/99 Given Ambulat ory Pharmac y typhoid vaccine, live, oral 1 1998 Unknown, Provider [id number]. 1 25 [facility] ([place]) complet ed typhoid vaccine, live, oral DoD yellow fever vaccine 1 1998 Unknown, Provider [id number] 37 [place] (CON) complet ed yellow fever vaccine DoD influenza virus vaccine, whole virus 19971259 [id number] 16 [facility] complet ed influenza virus vaccine, whole virus 09/02/98 Given Ambulat ory Pharmac y influenza virus vaccine, whole virus 19974722 [id number] 16 [facility] complet ed influenza virus vaccine, whole virus 09/02/98 Given Ambulat ory Pharmac y influenza virus vaccine, whole virus 1 1997 Unknown, Provider [id number] 16 [place] (CON) complet ed influenza virus vaccine, whole virus DoD meningococcal polysaccharid e (MPSV4) 19971907 6271100 32 [facility] complet ed meningoco ccal polysacch aride (MPSV4) 07/28/98 Given Ambulat ory Pharmac y tuberculin purified protein derivative 1997 2483-11 96 [facility] complet ed Patient Tolerance : Negative Ambulat ory Pharmac y meningococcal polysaccharid e (MPSV4) 19971820 4556073 32 [facility] complet ed meningoco ccal polysacch aride (MPSV4) 07/28/98 Given Ambulat ory Pharmac y tuberculin purified protein derivative 1997 2483-11 96 [facility] complet ed tuberculi n purified protein derivativ e 07/28/98 Given Ambulat ory Pharmac y meningococcal polysaccharid e vaccine (MPSV4) 1 1997 Unknown, Provider [id number] 32 [place] (CON) complet ed meningoco ccal polysacch aride vaccine (MPSV4) DoD tuberculin skin test; purified protein derivative solution, intradermal 1 1997 Unknown, Provider 2483-11 96 [place] (CON) complet ed tuberculi n skin test; purified protein derivativ e solution, intraderm al DoD influenza virus vaccine, whole virus 19961858 [id number] 16 [facility] complet ed influenza virus vaccine, whole virus 09/03/97 Given Ambulat ory Pharmac y influenza virus vaccine, whole virus 1 1996 Unknown, Provider [id number] 16 [facility] (Inactive) ([place]) complet ed influenza virus vaccine, whole virus DoD influenza virus vaccine, whole virus 1995 [id number] 16 [facility] influenza virus vaccine, whole virus 10/08/96 Given Ambulat ory Pharmac y influenza virus vaccine, whole virus 1995 [id number] 16 [facility] complet ed influenza virus vaccine, whole virus 10/08/96 Given Ambulat ory Pharmac y tuberculin purified protein derivative [address] [place], [place] [address]aut Labs complet ed Patient Tolerance : Negative Ambulat ory Pharmac y influenza virus vaccine, whole virus 1 1995 Unknown, Provider [id number] 16 [place] (CON) complet ed influenza virus vaccine, whole virus DoD tuberculin skin test; purified protein derivative solution, intradermal 1 1995 Unknown, Provider 96 Pamela (CON) complet ed tuberculi n skin test; purified protein derivativ e solution, intraderm al DoD hepatitis A adult vaccine 19952297 [id number] 52 [facility] hepatitis A adult vaccine 04/06/96 Given Ambulat ory Pharmac y hepatitis A adult vaccine 19952632 [id number] 52 [facility] hepatitis A adult vaccine 04/06/96 Given Ambulat ory Pharmac y hepatitis A vaccine, adult dosage 2 1995 Unknown, Provider [id number] 52 [facility] (CON) complet ed hepatitis A [...] diphtheri a toxoid) DoD yellow fever vaccine 19873898 0499354 37 [facility] complet ed yellow fever vaccine 09/14/88 Given Ambulat ory Pharmac y yellow fever vaccine 19875069 3023744 37 [facility] complet ed yellow fever vaccine 09/14/88 Given Ambulat ory Pharmac y yellow fever vaccine 1 1987 Unknown, Provider [id number] Chidi Santiago (CON) complet ed yellow fever vaccine DoD measles/mumps /rubella virus vaccine 1987 UKN 03 [employer] complet ed measles/m umps/rube lla virus vaccine 06/23/88 Given Ambulat ory Pharmac y poliovirus vaccine, live, oral 1987 UKN 02 [employer] complet ed polioviru s vaccine, live, oral 06/23/88 Given Ambulat ory Pharmac y measles/mumps /rubella virus vaccine 1987 UKN 03 [employer] complet ed measles/m umps/rube lla virus vaccine 06/23/88 Given Ambulat ory Pharmac y poliovirus vaccine, live, oral 1987 UKN 02 [employer] complet ed polioviru s vaccine, live, oral 06/23/88 Given Ambulat ory Pharmac y trivalent poliovirus vaccine, live, oral 1 1987 Unknown, Provider UKN 02 [employer] (LED) complet ed trivalent polioviru s vaccine, [...] ADM Date DC Date Status Disposition Source [address] [place] [address] [facility]Ot Neuromusc uloskelet al Clinic) OUTPATIENT [id number] right elbow tendoni tis IVETTE GEORGE 06/03 Released with Work/Duty Limitations [address] [place] [address] [facility])(O t Neuromu sculosk eletal Clinic) [address] [place] [address] [facility])(Occ upational Therapy) OUTPATIENT [id number] splint/ GAVINO Camacho 06/08 Released w/o Limitations [address] [place] [address] [facility])(O ccupati onal Therapy ) [address] [place] [address] [facility])(Occ upational Therapy) OUTPATIENT [id number] L wrist cock-up LEONARDO JOYEC 06/15 Released w/o Limitations [address] [place] [address] [facility])(O ccupati onal Therapy ) [address] [place] [address] [facility])([facility] S II Test [facility]) OUTPATIENT [id number] Transfe r of Jun visit from IVETTE Cole 07/03 Released with Work/Duty Limitations [address] [place] [address] [facility] ([facility]C HCS II Test [place]) [address] [place] [address] [facility])(Occ upational Therapy) OUTPATIENT [id number] educati on arthrit is DYLAN Ren 07/06 Released w/o Limitations [address] [place] [address] [facility] ([facility])(O ccupati onal Therapy ) [address] [place] [address] [facility])(Sco tt [facility] Fam Res Tm Green) OUTPATIENT [id number] adult DANNI North 04/14 Released w/o Limitations [address] [place] [address] [facility])(S cott [facility] Fam Res Tm Green) [address] [place] [address] [facility] ([facility]Sco tt [facility] Fam Res Tm Green) OUTPATIENT [id number] pap smear CIRO PERRY 04/14 Released w/o Limitations [address] [place] [address] [facility])(S cott [facility] Fam Res Tm Green) [address] [place] [address] [facility])(Sco tt [facility] Fam Res Tm Green) OUTPATIENT [id number] FELIPA ALEXANDER 07/03 Released w/o Limitations [address] [place] [address] [facility] ([facility]S cott [facility] Fam Res Tm Green) [address] [place] [address] [facility] ([facility])(Sco tt [facility] Fam Res Tm Green) TELE CONSULT [id number] Medical Update FELIPA SANDOVAL 05/[address] [place] [address] [facility])(S cott [facility] Fam Res Tm Green) [address] [place] [address] [place] [facility])(War rior Op Med Cln Tm A Ad) OUTPATIENT [id number] Possibl e sinus infecti on [phone] JUDITH LOPES 06/04 Released w/o Limitations [address] [place] [address] [facility])(W arrior Op Med Cln Tm A Ad) [address] [place] [address] [place] [facility])(War rior Op Med Cln Tm A Ad) OUTPATIENT [id number] chest congest ion cough w/back pain [phone] MIRZA OLIVER 06/11 Released w/o Limitations [employer] ([facility])(W arrior Op Med Cln Tm A Ad) [employer] ([facility])(War rior Op Med Cln Tm A Ad) OUTPATIENT [id number] right arm pain for about a month DERREK HA 04/06 Released w/o Limitations [employer] ([facility])(W arrior Op Med Cln Tm A Ad) [employer] ([facility])(War rior Op Med Cln Tm A Ad) OUTPATIENT [id number] BP check 11/18 DERREK HA 04/07 Released w/o Limitations [employer] ([facility])(W arrior Op Med Cln Tm A Ad) [employer] ([facility])(War rior Op Med Cln Tm A Ad) OUTPATIENT [id number] BP check 12/19 DERREK HA 04/09 Released w/o Limitations [employer] ([facility])(W arrior Op Med Cln Tm A Ad) [employer] ([facility])(War rior Op Med Cln Tm A Ad) OUTPATIENT [id number] BP check 02/16 DERREK HA 04/14 Released w/o Limitations [employer] ([facility])(W arrior Op Med Cln Tm A Ad) [employer] ([facility])(War rior Op Med Cln Tm A Ad) OUTPATIENT [id number] BP check 03/18 DERREK HA 04/15 Released w/o Limitations [employer] ([facility])(W arrior Op Med Cln Tm A Ad) [employer] ([facility])(War rior Op Med Cln Tm A Ad) OUTPATIENT [id number] F/u elevate d BP Checks DERREK HA 05/04 Released w/o Limitations [employer] ([facility])(W arrior Op Med Cln Tm A Ad) [employer] ([facility])(War rior Op Med Cln Tm A Ad) OUTPATIENT [id number] 11/18 BP Check-L MIRZA Fong 05/05 Released w/o Limitations [employer] [place] ([facility])(W arrior Op Med Cln Tm A Ad) [employer] [place] ([facility])(War rior Op Med Cln Tm A Ad) OUTPATIENT [id number] BP Check 2/5-Karri elyssa MELODY MIRZA DARYL 05/06 Released w/o Limitations [employer] [place] ([facility]W arrior Op Med Cln Tm A Ad) [employer] [place] ([facility])(War rior Op Med Cln Tm A Ad) OUTPATIENT [id number] BP Check 3/5 MELODY MIRZA DARYL 05/07 Released w/o Limitations [employer] [place] ([facility])(W arrior Op Med Cln Tm A Ad) [employer] [place] ([facility])(War rior Op Med Cln Tm A Ad) OUTPATIENT [id number] BP Check 4/5-Karri elyssa OLIVER, MIRZA DARYL 05/08 Released w/o Limitations [employer] [place] ([facility])(W arrior Op Med Cln Tm A Ad) [employer] [place] ([facility])(War rior Op Med Cln Tm A Ad) OUTPATIENT [id number] BP check 03/18 DERREK HA 05/11 Released w/o Limitations [employer] [place] ([facility])(W arrior Op Med Cln Tm A Ad) [employer] [place] [facility])(War rior Op Med Cln Tm A Ad) OUTPATIENT [id number] F/U on Blood Pressur e [phone] DERREK AH 06/05 Released w/o Limitations [employer] [place] ([facility])(W arrior Op Med Cln Tm A Ad) [employer] [place] [facility])(War rior Op Med Cln Tm A Ad) TELE CONSULT [id number] Pt wants letter to keep Dr Ha as PCM. ph [phone] MIRZA Shane 07/06 [employer] [place] [facility] ([facility])(W arrior Op Med Cln Tm A Ad) [employer] [place] [facility])(War rior Op Med Cln Tm A Ad) OUTPATIENT [id number] rt shoulde r pain... [id number] KI MIRELES 10/02 Released w/o Limitations [employer] [place] [facility])(W arrior Op Med Cln Tm A Ad) [employer] [place] [facility])(War rior Op Med Cln Tm A Ad) TELE CONSULT [id number] Lab f/u MIRZA WESLEY R 10/28 [employer] [place] Isaac [facility])(W arrior Op Med Cln Tm A Ad) [employer] [place] [facility])(War rior Op Med Cln Tm A Ad) OUTPATIENT [id number] F/U [phone] sorenes s in shoulde r DERREK Coelho 01/18 Released w/o Limitations [employer] [place] [facility] ([facility])(W arrior Op Med Cln Tm A Ad) [facility] [place] [facility])(Nco tt [facility] Team 3) TELE CONSULT [id number] Daphnie atbetty artriti s, continu e mediati on and PT JARRET CARREON 01/25 Referred for Appointment [employer] [place] [facility])(S montez [facility] Team 3) [facility] [place] [facility])(Nco tt Internal Medicine Tm) OUTPATIENT [id number] f/u on meds - [id number] ARNOL STONE 02/07 Released w/o Limitations [employer] [place] [facility])(S cott Interna l Medicin e Tm) [facility] [place] Isaac [facility])(Nco tt Internal Medicine Tm) OUTPATIENT [id number] back pain going up through right shoulde r [id number] ARNOL STONE 11/17 Released w/o Limitations [employer] [place] [facility] ([facility])(S cott Interna l Medicin e Tm) [facility] [place] [facility])(Tamping [employer] Operator ecology) OUTPATIENT [id number] well woman exam [phone] TRE WARNER 11/28 Released w/o Limitations [facility] [place] [facility] ([facility])(G ynecolo gy) [facility] [place])([employer]) TELE CONSULT [id number] Notes Entered by: EDI WARNER 30 Nov 2012 1727 ------- ------- ------- ------- -- results TRE WARNER 11/[address] [place] [address])(G ynecolo gy) [address] [place] [address])([employer]) TELE CONSULT [id number] Notes Entered by: EDI WARNER 06 Dec 2012 0900 ------- ------- ------- ------- -- results ROBERTA BERNARDO 12/[address] [place] [address])(G ynecolo gy) [address] [place] [address])([facility] ) OUTPATIENT [id number] f/u thyroid results [id number] ARNOL STONE 12/11 Released w/o Limitations [address] [place] [address])(S cott Intern[facility] l Medicin e Tm) [address] [place] [address])([employer] ecology) TELE CONSULT [id number] Notes Entered by: EDI WARNER 11 Dec 2012 1549 ------- ------- ------- ------- -- results TRE WARNER 12/[address] [place] [address])(G ynecolo gy) [address] [place] [address])([facility] ) TELE CONSULT [id number] Notes Entered by: GINGER TAVARES 13 Dec 2012 0849 ------- ------- ------- ------- -- Fax over LABs & Rad to Dr. JEAN/Meka /229-19 59 SANA GONZALEZ 12/[address] [place] [address])(S cott Interna l Medicin e Tm) [address] [place] [address])([facility] ) OUTPATIENT [id number] cough, congest ion 505 0011 ARNOL STONE 03/29 Released w/o Limitations [address] [place] [address])(S cott Interna l Medicin e Tm) [address] [place] [address])([facility] ) TELE CONSULT [id number] Notes Entered by: SHIN LAGOS 02 Apr 2013 0846 ------- ------- ------- ------- -- Med change - Stone - [id number] SANA GONZALEZ 04/[address] [place] [address])([facility] cott Interna l Medicin e Tm) [address] [place] [address])([facility] ) TELE CONSULT [id number] Notes Entered by: SHIN LAGOS 03 Apr 2013 0855 ------- ------- ------- ------- -- Med refill - Stone - [id number] (618) SANA GONZALEZ 04/[address] [place] [address])([facility] Intern[facility] l Medicin [facility] Tm) [address] [place] [address])([facility] ) TELE CONSULT [id number] Notes Entered by: ALTON SMITH 20 Apr 2013 0808 ------- ------- ------- ------- -- Ref quinn/ Meka/618 .229.19 59 SANA GONZALEZ 04/[address] [place] [address])([facility] Intern[facility] l Medicin [facility] Tm) [address] [place] [address])([employer]) TELE CONSULT [id number] Notes Entered by: ALTON SMITH 20 Apr 2013 0811 ------- ------- ------- ------- -- Med renewal /618.22 9 KRISSY ANSARI 04/[address] [place] [address])(Niyah palumbo gy) [address] [place] [address])([employer]) TELE CONSULT [id number] Notes Entered by: EDI WARNER 2013 1348 ------- ------- ------- ------- -- results KARIS FERNANDES 04/[address] [place] [address])(Niyah palumbo gy) [address] [place] [address])([facility] ) TELE CONSULT [id number] Notes Entered by: CARMEN DEL VALLE 31 May 2013 0944 ------- ------- ------- ------- -- Network Results -ENDOCR INOLOGY 3 ARNOL STONE 05/[address] [place] [address])([facility] Intern[facility] l Medic[facility] Tm) [address] [place] [address])([facility] ) TELE CONSULT [id number] Notes Entered by: EMELY SARAH 23 Aug 2013 1405 ------- ------- ------- ------- -- Change Endocri nology provide rs SHYAM SARAH I 08/[address] [place] [address])([facility] Intern[facility] l Medicin e Tm) [address] [place] [address])([facility] ) TELE CONSULT [id number] Notes Entered by: LISSET DIMAS 10 Sep 2013 0832 ------- ------- ------- ------- -- Records request -Meka/Joanne 8-229-4 913 SHYAM SARAH I 09/[address] [place] [address])(S cott Intern[facility] l Medicin e Tm) [address] [place] [address])([facility] ) OUTPATIENT [id number] muscle, joint pain all over body [id number] ARNOL STONE 09/28 Released w/o Limitations [address] [place] [address])(S cott Intern[facility] l Medicin e Tm) [address] [place] [address])([facility] ) OUTPATIENT [id number] f/u for labwork 229 4913 ARNOL STONE 10/08 Released w/o Limitations [address] [place] [address])([facility] cott Intern[facility] l Medicin [facility] Tm) [address] [place] [address])([facility] ) TELE CONSULT [id number] Notes Entered by: VAL AVINA 30 Nov 2013 1025 ------- ------- ------- ------- -- Network Results -RHEUMA TOLOGY 11/26/13 ARNOL STONE 11/[address] [place] [address] [place] [facility])(S cott Interna l Medicin e Tm) [address] [place] [address])([facility] ) OUTPATIENT [id number] numbnes s on right side in arm and hand- pinched nerve- X 2 days- [id number] ARNOL STONE 02/26 Released w/o Limitations [address] [place] [address])(S [facility] Intern[facility] l Medicin e Tm) [address] [place] [address])([facility] ) TELE CONSULT [id number] Notes Entered by: ALTON SMITH 07 Mar 2014 0908 ------- ------- ------- ------- -- SX - STAT MRI order/C ox/618. 229.491 3 pt or of pt* GAVINO DESAI 03/[address] [place] [address])([facility] Intern[facility] l Medicin [facility] Tm) [address] [place] [address])([employer]) TELE CONSULT [id number] Notes Entered by: TRISTAN LORD 29 Apr 2014 0833 ------- ------- ------- ------- -- Med refill KARIS FERNANDES 04/[address] [place] [address])(Niyah palumbo gy) [address] [place] [address])([employer]) OUTPATIENT [id number] well and med refill 229.430 3 TRE WARNER 05/01 Released w/o Limitations [address] [place] [address])(G ynecolo gy) [address] [place] [address])([employer] ecology) TELE CONSULT [id number] Notes Entered by: EDI WARNER 02 May 2014 1708 ------- ------- ------- ------- -- results KARIS FERNANDES 05/[address] [place] [address])(G ynecolo gy) [address] [place] [address])([facility] Tm) TELE CONSULT [id number] Notes Entered by: Stanford ROBB 13 Jun 2014 1240 ------- ------- ------- ------- -- Pat request s to talk with nurse about Neuro surgeon /[facility]/ [phone] SANA GONZALEZ 06/[address] [place] [address])(S cott Interna l Medicin e Tm) [address] [place] [address])([facility] Tm) TELE CONSULT [id number] Notes Entered by: Dale ROBB 18 Jun 2014 0917 ------- ------- ------- ------- -- Roni ely Dr 229.491 3 GAVINO DESAI 06/[address] [place] [address])(S cott Interna l Medicin e Tm) [address] [place] [address])([facility]) TELE CONSULT [id number] Notes Entered by: VAL AVINA 24 Jun 2014 1319 ------- ------- ------- ------- -- Network Results -CANDEA JACQUESOGAnabel 05/14/14 VASILIY MCKENZIE 06/[address] [place] [address])([facility] cott Intern[facility] l Medicin [facility] Tm) [address] [place] [address])([facility] ) TELE CONSULT [id number] Notes Entered by: OLIMPIA METCALF ELS 10 Jul 2014 1247 ------- ------- ------- ------- -- NeuroSu rgbert ely//Man pastrana/ /229.49 13 or 505.001 1 GAVINO DESAI 07/[address] [place] [address])([facility] cott Intern[facility] l Medic[facility] Tm) [address] [place] [address])([facility] ) TELE CONSULT [id number] Notes Entered by: GAVINO DESAI 16 Jul 2014 1449 ------- ------- ------- ------- -- Neurosu GAVINO Delgadillo 07/[address] [place] [address])(S cott Interna l Medicin e Tm) [address] [place] [address])([facility] ) TELE CONSULT [id number] Notes Entered by: BRONWYN DOBBS 19 Aug 2014 1604 ------- ------- ------- ------- -- Network Results -SURGER Y 08/15/14 RICARDA HARRY 08/[address] [place] [address])(S cott Interna l Medicin e Tm) [address] [place] [address])([facility] ) TELE CONSULT [id number] Notes Entered by: VAL AVINA 04 Sep 2014 1155 ------- ------- ------- ------- -- Network Results -ORTHOP EDICS 03/05/14 , 03/08/14 , 4, 03/08/14 , 03/12/14 & 06/11/14 RICARDA HARRY 09/[address] [place] [address])([facility] cott Intern[facility] l Medicin [facility] Tm) [address] [place] [address])([facility] ) TELE CONSULT [id number] Notes Entered by: TOBY MERIDA 29 Nov 2014 0943 ------- ------- ------- ------- -- Endocri nology referra l renewal request ed by PT ASHLIE MERIDA 11/29 Referred for Appointment [address] [place] [address])([facility] Intern[facility] l Medic[facility] Tm) [address] [place] [address])([facility] ) TELE CONSULT [id number] Notes Entered by: CIRO LANGFORD 03 Jan 2015 1053 ------- ------- ------- ------- -- Please Network results -Endocr inology 015 MIRZA MIRANDA V 01/[address] [place] [address])([facility] cott Intern[facility] l Medicin e Tm) [address] [place] [address])([facility] ) TELE CONSULT [id number] Notes Entered by: Stanford ROBB 15 Apr 2015 0856 ------- ------- ------- ------- -- Referra l renewal /Fina /199 211 0348 ELIER CHAN 04/[address] [place] [address])([facility] Intern[facility] Medic[facility] Tm) [address] [place] [address])([facility] ) OUTPATIENT [id number] ANNUAL PCM VISIT, NEEDS REFERRA L RENEWAL MIRZA MIRANDA V 04/16 Released w/o Limitations [address] [place] [address])([facility] Intern[facility] Medic[facility] Tm) [address] [place] [address])([facility] ) OUTPATIENT [id number] f/u BP Elevati on MIRZA MIRANDA V 04/30 Released w/o Limitations [address] [place] [address])([facility] Intern[facility] Medic[facility] Tm) [address] [place] [address])([facility] ) TELE CONSULT [id number] Notes Entered by: OLIMPIA METCALF ELS 23 Jun 2015 0829 ------- ------- ------- ------- -- Bone Density Test Results , Med Renewal //Vikram godfrey//229 .4913 SANA GONZALEZ 06/[address] [place] [address])([facility] Intern[facility] l Medicin [facility] Tm) [address] [place] [address])([facility] ) TELE CONSULT [id number] Notes Entered by: CIRO LANGFORD 08 Jul 2015 0932 ------- ------- ------- ------- -- Network results -Endocr inology 015 COREY CALDERON V 07/[address] [place] [address])([facility] cott Interna l Medicin e Tm) [address] [place] [address])([facility] ) TELE CONSULT [id number] Notes Entered by: WILBUR CRABTREE 30 Jul 2015 0756 ------- ------- ------- ------- -- Network Results -RHEUMA TOLOGY 07/22/15 COREY CALDERON V 07/[address] [place] [address])([facility] Tm) [address] [place] [address])([facility] ) TELE CONSULT [id number] Notes Entered by: Faith JAMES 28 Aug 2015 1250 ------- ------- ------- ------- -- Flu Shot ? / Salomon / SANA GONZALEZ 08/[address] [place] [address])([facility] Intern[facility] Tm) [address] [place] [address])([facility] ) TELE CONSULT [id number] Notes Entered by: STEPHEN RAMOS 26 Jul 2016 1012 ------- ------- ------- ------- -- Referra l Renewal Request /Alyssa /229.19 59 JOSE MA Jhoana 07/26 Referred for Appointment [address] [place] [address] Group [facility])(S cott Interna l Medicin e Tm) [address] [place] [address])([facility] ) OUTPATIENT [id number] BP f/u and medicat ions 229.195 9 FERNANDO SHAH 07/26 Released w/o Limitations [address] [place] [address] Group [place] [facility]S cott Interna l Medicin e Tm) [address] [place] [address])([facility] ) TELE CONSULT [id number] Notes Entered by: FERNANDO SHAH 28 Jul 2016 1618 ------- ------- ------- ------- -- Lab results DARRYL CLEMENTS 07/28 Referred for Appointment [address] [place] [address] Group [facility])(S cott Interna l Medicin e Tm) [address] [place] [address])([facility] ) TELE CONSULT [id number] Notes Entered by: CIRO LANGFORD 15 Sep 2016 0754 ------- ------- ------- ------- -- Network results Endocri nology 016 FERNANDO DOLAN 09/[address] [place] [address])([facility] cott Intern[facility] l Medicin e Tm) [address] [place] [address])([facility] ) TELE CONSULT [id number] Notes Entered by: BRONWYN DOBSB 01 Nov 2016 1310 ------- ------- ------- ------- -- Network Results RHEUMAT OLOGY 08/12/16 MICHEAL SHAH, FERNANDO 11/[address] [place] [address])([facility] cott Interna l Medicin e Tm) [address] [place] [address])([facility] Internal [facility]) TELE CONSULT [id number] Notes Entered by: JACINTO BURT 27 Jan 2017 0749 ------- ------- ------- ------- -- Angela Calderon - DARRYL Alan 01/27 Referred for Appointment [employer] [facility])(S cott Interna l Medicin e Tm) [facility])([facility] ) TELE CONSULT [id number] Notes Entered by: YESENIA HAMMER 04 Feb 2017 0958 ------- ------- ------- ------- -- Network Results [facility] ciera 7 COREY ASHFORD V 02/04 [facility])(S cott Interna l Medicin e Tm) [facility])([facility] ) TELE CONSULT [id number] Notes Entered by: ANDRÉS GONZALES RET 08 Feb 2017 0728 ------- ------- ------- ------- -- SX:Anibal i Symptom antonio/Vikram godfrey/618. 505.001 1 [facility] DARRYL CLEMENTS 02/08 Referred for Appointment [employer] [place] [facility])(S cott Interna l Medicin e Tm) [facility])([facility] ) TELE CONSULT [id number] Notes Entered by: SCOUT SMITH 10 May 2017 0742 ------- ------- ------- ------- -- Update Roni ely Request - Appt Jul / Nelly / 229-503 7 / 505-001 1 - KAJAL Barbosa 05/10 Referred for Appointment [employer] [facility])(S cott Interna l Medicin e Tm) [facility] Medical [facility])([facility] ) TELE CONSULT [id number] Notes Entered by: STEPHEN RAMOS 30 Aug 2017 1021 ------- ------- ------- ------- -- Med Philippe /Pankaj medellin/229.5 037 or 505.001 1 ELIER CHAN 08/[address] [place] [address])(S cott Interna l Medicin e Tm) [address] [place] [address])([facility] ) TELE CONSULT [id number] Notes Entered by: DANIELLE RDZ 02 Sep 2017 1139 ------- ------- ------- ------- -- Network results Endocri nology 7 [facility] SANDRA ROWLAND 09/[address] [place] [address])(S [facility] Interna l Medicin e Tm) [address] [place] [address])([employer] ecology) OUTPATIENT [id number] annual well-wo man exam / 229.503 7 YADIRA PALMA 10/11 Released w/o Limitations [address] [place] [address])(G yrolly gy) [address] [place] [address])([employer] ecology) TELE CONSULT [id number] Notes Entered by: CALVIN PALMA 12 Oct 2017 0859 ------- ------- ------- ------- -- Test results KARIS FERNANDES 10/[address] [place] [address])(G linwood gy) [address] [place] [address])([facility] ) TELE CONSULT [id number] Notes Entered by: Faith JAMES 14 Dec 2017 0954 ------- ------- ------- ------- -- Med Philippe / Alyssa/ 229-503 7 or 505-001 1 iag - aj ELIER CHAN 12/[address] [place] [address])(S cott Interna l Medicin e Tm) [address] [place] [address])([facility] ) OUTPATIENT [id number] Med FERNANDO Mosqueda 12/15 Released w/o Limitations [address] [place] [address])(S cott Interna l Medicin e Tm) [address] [place] [address])([employer] ecology) TELE CONSULT [id number] Notes Entered by: WILBUR CRABTREE 05 Jan 2018 1255 ------- ------- ------- ------- -- Network Results -RADIOL OGY 11/22/17 BONE DENSITY SDG KARIS FERNANDES 01/[address] [place] [address])(G ynecolo gy) [address] [place] [address])([facility] ) TELE CONSULT [id number] Notes Entered by: JACINTO BURT 06 Feb 2018 1305 ------- ------- ------- ------- -- Roni Shah - 618-229 -5037/6 18-505- [phone] - [facility] ELIER CHAN 02/[address] [place] [address])(S cott Interna l Medicin e Tm) [address] [place] [address])([facility] ) TELE CONSULT [id number] Notes Entered by: SUN TYLER 23 Feb 2018 0724 ------- ------- ------- ------- -- ER Refusal -SX - R Thumb pain - Auto Acciden gutierrez/ Alyssa/ 229-503 7 - ELIER Kirby 02/[address] [place] [address])(S cott Interna l Medicin e Tm) [address] [place] [address])([facility] ) OUTPATIENT [id number] Trauma right thumb X 1 week FERNANDO SHAH 02/24 Released w/o Limitations [address] [place], [place] [address])(S cott Interna l Medicin e Tm) [address] [place] [address])([facility] ) TELE CONSULT [id number] Notes Entered by: SCOUT SMITH 10 Aug 2018 1335 ------- ------- ------- ------- -- Referra l Renewal - Appt Aug / Shah / 229-503 7 / 505-001 1 - sgj ELIER CHAN 08/10 Released w/o Limitations [address] [place] [address])(S cott Interna l Medicin e Tm) [address] [place] [address])([facility] ) TELE CONSULT [id number] Notes Entered by: SHIN LAGOS 16 Oct 2018 0842 ------- ------- ------- ------- -- Request labs/ra diology - Med Refill - Shah - [phone] -5037/h 505-001 1vbch ELIER CHAN 10/16 Medication Refill Forwarded [address] [place] [address])([facility] cott Interna l Medicin e Tm) [address] [place] [address])([facility] ) OUTPATIENT [id number] 7 f/u on meds, blood pressur e, 229.503 7 FERNANDO SHAH 02/16 Released w/o Limitations [address] [place] [address])(S cott Interna l Medicin e Tm) [address] [place] [address])([facility] ) TELE CONSULT [id number] Notes Entered by: ANDRÉS GONZALES RET 03 Jul 2019 1208 ------- ------- ------- ------- -- Ref Renewal Endo/ ight/61 8.229.5 037 ELIER CHAN 07/03 Other Not Elsewhere Classified [address] [place] [address])(S cott Interna l Medicin e Tm) [address] [place] [address])([facility] ) TELE CONSULT [id number] Notes Entered by: EPHRAIM GAITAN 07 May 2020 0705 ------- ------- ------- ------- -- SX Rash/ RX & phone call request / Sandra s/ ELIER CHAN 05/07 Referred for Appointment [address] [place] [address])(S [facility] Interna l Medicin e Tm) [address] [place] [address])([facility] ) OUTPATIENT [id number] 0 Rash X 1 week OMID WHITAKER SHINE 05/07 Released w/o Limitations [address] [place] [address])(S cott Interna l Medicin e Tm) [address] [place] [address])([facility] ) OUTPATIENT [id number] 8 F/u Hyperte nsion SHERMAN OMID RIOJAS 05/07 Released w/o Limitations [address] [place] [address])(S cott Interna l Medicin e Tm) [address] [place] [address])([facility] ) TELE CONSULT [id number] Notes Entered by: WHITAKEROMID ROSS 21 May 2020 1538 ------- ------- ------- ------- -- Rash F/U SHERMAN OMID RIOJAS 05/[address] [place] [address])([facility] Intern[facility] l Medicin e Tm) [address] [place] [address])([facility] ) OUTPATIENT [id number] Virtual -Conges tion-R Ear pressur e-clogg ed-OTC with No relief DARCY CHEN 07/10 Released w/o Limitations [address] [place] [address])(S cott Interna l Medicin e Tm) [address] [place] [address])([facility] ) TELE CONSULT [id number] Notes Entered by: JACINTO BUTR 11 Aug 2020 0833 ------- ------- ------- ------- -- Sx: Back pain/Sp asms - ER F/U - sooner appt - [facility] s - [phone] - tsg* ELIER CHAN Faith 08/11 Other Not Elsewhere Classified [address] [place] [address])(S cott Interna l Medicin e Tm) [address] [place] [address])([facility] ) OUTPATIENT [id number] 2 VIRTUAL - Anderso n ER F/U - Back pain, muscle spasms DARCY CHEN 08/11 Released w/o Limitations [address] [place] [address])(S cott Interna l Medicin e Tm) [address] [place] [address])([facility] ) TELE CONSULT [id number] Notes Entered by: AZAM HIDALGO 19 Aug 2020 0824 ------- ------- ------- ------- -- Network results Physica l Therapy 020 DARCY HERNANDEZ 08/[address] [place] [address])(S cott Interna l Medicin e Tm) [address] [place] [address])([facility] ) TELE CONSULT [id number] Notes Entered by: JADA CONKLIN 15 Sep 2020 1003 ------- ------- ------- ------- -- roni silva /garrett murray/[phone] EDIS Tran 09/15 Other Not Elsewhere Classified [address] [place] [address] Group [facility])(S cott Interna l Medicin e Tm) [address] [place] [address])([facility] ) TELE CONSULT [id number] Notes Entered by: AZAM HIDALGO 02 Oct 2020 1029 ------- ------- ------- ------- -- Network results Physica l Therapy 020 DARCY HERNANDEZ 10/[address] [place] [address] Group [place] [facility]S cott Interna l Medicin e Tm) [address] [place] [address] [place] [facility])(Fam hakan Med Tm B Non-AD BCC) TELE CONSULT [id number] Notes Entered by: JADA CONKLIN 22 Sep 2021 1423 ------- ------- ------- ------- -- referra jhoana silva /ananya alvarez/[phone] SACHA Wu 09/22 Immediate Referral [address] [place] [address] [place] [facility])(F amily Med Tm B Non-AD BCC) [address] [place] [address] [place] [facility])(Fam hakan Med Tm B Non-AD BCC) TELE CONSULT [id number] Notes Entered by: JACINTO BURT 02 Oct [id number] ------- ------- ------- ------- -- Rx renewal - Sofya - - [facility] IVONNE RIVERO 10/02 Referred for Appointment [address] [place] [address] [place] [facility])(F amily Med Tm B Non-AD BCC) [address] [place] [address] [facility]Fam hakan Med Tm B Non-AD BCC) OUTPATIENT [id number] F2F/scot ual exam MERY MCKAY 10/13 Released w/o Limitations [address] [place] [address] [facility])(F amily Med Tm B Non-AD BCC) [address] [place] [address] [facility])(Fam hakan Med Tm B Non-AD BCC) TELE CONSULT [id number] Notes Entered by: SUN TYLER 21 Oct 202104 ------- ------- ------- ------- -- Medicat ion Change Inquiry - Roni ely Req- Special ist F/U/ Sofya / MERY MCKAY 10/[address] [place] [address] [facility]F amily Med Tm B Non-AD BCC) [address] [place] [address] [place] [facility])([facility] hakan Med Tm B Non-AD BCC) TELE CONSULT [id number] Notes Entered by: Logan ABRAHAM 23 Oct 2021 1419 ------- ------- ------- ------- -- Network results Endocri nology 021 MERY CALLAHAN 10/[address] [place] [address] [place] [facility])(F amily Med Tm B Non-AD BCC) [address] [place] [address] [facility] [place] hakan Med Tm B Non-AD BCC) OUTPATIENT [id number] F2F blood pressur e monitor ing and referra l for sleep JODY LAM [employer] 11/25 Released w/o Limitations [address] [place] [address] [place] [facility] [place])(F amily Med Tm B Non-AD BCC) [address] [place] [address] [place] [facility] [place])(Fam hakan Med Tm B Non-AD BCC) TELE CONSULT [id number] 2 Notes Entered by: SACHA MONDRAGON 22 Dec 2021 1209 ------- ------- ------- ------- -- Direct Call/pu lm refer l/SACHA Wheeler 12/22 Immediate Referral [address] [place] [address] [place] [facility] [place])(F amily Med Tm B Non-AD BCC) [address] [place] [address] [place] [facility] [place])(Fam hakan Med Tm B Non-AD BCC) OUTPATIENT [id number] referra l request [phone] MERY MCKAY 02/15 Released w/o Limitations [address] [place] [address] [place] [facility] [place])(F amily Med Tm B Non-AD BCC) [address] [place] [address] [place] [facility] [place])(Fam hakan Med Tm B Non-AD BCC) TELE CONSULT [id number] 3 Notes Entered by: AZAM HIDALGO 23 Feb 2022 0855 ------- ------- ------- ------- -- Network results Physica l Therapy 022 KSP MERY MCKAY 02/[address] [place] [address] [place] [facility] [place])(F amily Med Tm B Non-AD BCC) [address] [place] [address] [place] [facility] [place])(Fam hakan Med Tm B Non-AD BCC) TELE CONSULT [id number] 3 Notes Entered by: SUYAPA BRANHAM 08 Apr 2022 0916 ------- ------- ------- ------- -- Network results Physica l Therapy 022 LSMERY BRAND 04/[address] [place] [address] [place] [facility] [place])(F amily Med Tm B Non-AD BCC) [address] [place] [address] [place] [facility] [place])(Fam hakan Med Tm B Non-AD BCC) OUTPATIENT [id number] F2F - sinus pressur e, cough, x 5 wks Home COVID neg DERREK LAROSE 11/09 Released w/o Limitations [address] [place] [address] [place] [facility] [place])(F amily Med Tm B Non-AD BCC) [address] [place] [address] [place] [facility] [place])(Fam hakan Med Tm B Non-AD BCC) TELE CONSULT [id number] Notes Entered by: DONNIE BARKLEY 01 Dec 2022 0856 ------- ------- ------- ------- -- Referra ely Renewal Request /Ananya s/ CLEMENT PAZ 12/01 Other Not Elsewhere Classified [address] [place] [address] [place] [facility] [place])(F amily Med Tm B Non-AD BCC) Procedures [...] Non-Physician Phone Call To Patient/Provider Brief (5-10min) [id number] ELIER CHAN [facility] Non-Physician Phone Call To Patient/Provider Brief (5-10min) Non-Physician Phone Call To Patient/Provider Brief (5-10min) [phone] ELIER CHAN [facility] Non-Physician Phone Call To Patient/Provider Brief (5-10min) Non-Physician Phone Call To Patient/Provider Brief (5-10min) [phone] ELIER CHAN [facility] Non-Physician Phone Call To Patient/Provider Brief (5-10min) Non-Physician Phone Call To Patient/Provider Brief (5-10min) [phone] ELIER CHAN [facility] Screening papanicolaou smear; obtaining, preparing and conveyance of cervical or vaginal smear to laboratory 017 YADIRA PALMA [facility] Non-Physician Phone Call To Patient/Provider Brief (5-10min) Non-Physician Phone Call To Patient/Provider Brief (5-10min) [phone] ELIER CHAN [facility] Non-Physician Phone Call To Patient/Provider Brief (5-10min) Non-Physician Phone Call To Patient/Provider Brief (5-10min) [id number] KAJAL STRICKLAND [facility] Non-Physician Phone Call To Patient/Provider Brief (5-10min) Non-Physician Phone Call To Patient/Provider Brief (5-10min) [id number] DARRYL CLEMENTS [facility] Non-Physician Phone Call To Patient/Provider Brief (5-10min) Non-Physician Phone Call To Patient/Provider Brief (5-10min) [phone] DARRYL CLEMENTS [facility] Non-Physician Phone Call To Patient/Provider Brief (5-10min) Non-Physician Phone Call To Patient/Provider Brief (5-10min) [id number] SANA GONZALEZ [facility] Non-Physician Phone Call To Patient/Provider Brief (5-10min) Non-Physician Phone Call To Patient/Provider Brief (5-10min) [phone] JOSUÉ GONZALEZ [facility] Non-Physician Phone Call To Patient/Provider Brief (5-10min) Non-Physician Phone Call To Patient/Provider Brief (5-10min) [id number] ASHLIE MERIDA [facility] Non-Physician Phone Call To Patient/Provider Brief (5-10min) Non-Physician Phone Call To Patient/Provider Brief (5-10min) [phone] GAVINO DESAI Non-Physician Phone Call To Patient/Provider Brief (5-10min) Non-Physician Phone Call To Patient/Provider Brief (5-10min) [phone] GAVINO DESAI Non-Physician Phone Call To Patient/Provider Brief (5-10min) Non-Physician Phone Call To Patient/Provider Brief (5-10min) [phone] GAVINO DESAI Non-Physician Phone Call To Pt/Provider Intermed (11-20 min) Non-Physician Phone Call To Pt/Provider Intermed (11-20 min) [phone] SANA GONZALEZ [facility] Non-Physician Phone Call To Patient/Provider Brief (5-10min) Non-Physician Phone Call To Patient/Provider Brief (5-10min) [phone] GAVINO DESAI Cervical or vaginal cancer screening; pelvic and clinical breast examination 013 TRE WARNER Screening papanicolaou smear; obtaining, preparing and conveyance of cervical or vaginal smear to laboratory 013 TRE WARNER Physician Supervised Injection Intramuscular Physician Supervised Injection Intramuscular [phone] KI MIRELES Patient identified. Patient recieved IM injection of toradol 60mg/2ml (lot number [id number]/exp date 14 Jun 2012 in right upper outer glut. Patient tolerated procedure well. Awaiting reassessment DoD A e ment & Intervention Blood Pre ure Measured 010 EVE GARCIA [facility] A e ment & Intervention Blood Pre ure Measured 010 EVE GARCIA Screening papanicolaou smear; obtaining, preparing and conveyance of cervical or vaginal smear to laboratory 006 CIRO PERRY [facility] Patient Training And Self-Care Skills Patient Training And Self-Care Skills [id number] 004 DYLAN HUSSEIN Modalities Heat Hot Packs Modalities Heat Hot Packs 60337 004 DYLAN HUSSEIN Modalities Ultrasound Modalities Ultrasound 35624 004 DYLAN HUSSEIN Occupational Therapy Re-Evaluation Occupational Therapy Re-Evaluation 72279 004 IVETTE GEORGE Patient Training And Self-Care Skills Patient Training And Self-Care Skills 25209 004 LEONARDO GALLEGOS Orthopedic Splinting Short Arm Orthopedic Splinting Short Arm 00857 004 LEONARDO GALLEGOS Addition to upper extremity orthosis, sock, fracture or equal, each 004 GAVINO FELIX Patient Training And Self-Care Skills Patient Training And Self-Care Skills 52390 004 GAVINO FELIX WHO, wrist gauntlet, molded to patient model, custom fabricated 004 GAVINO FELIX Non-Physician Phone Call To Patient/Provider Brief (5-10min) Non-Physician Phone Call To Patient/Provider Brief (5-10min) [id number] SACHA MONDRAGON [facility] Non-Physician Phone Call To Pt/Provider Intermed (11-20 min) Non-Physician Phone Call To Pt/Provider Intermed (11-20 min) [id number] MERY MCKAY Preventive Medicine Services: Counseling/Educatio n On Self-Care Preventive Medicine Services: Counseling/Educa tion On Self-Care [id number] DERREK LAROSE [facility] SELF-CARE EDUCATION PROVIDED TO PATIENT (HF) 022 [facility] TELE ASSESS & MGT SRV PROV QUAL NONPHYS HLTH CARE PRO TO EST PAT,PARENT,GUARD NOT ORIG REL ASSESS & MGT SRV PROV W/IN PREV 7 DAYS NOR LEAD ASSESS & MGT SRV/PX W/IN NXT 24 HR/SOON APT;5-10 MIN MED DIS 022 [facility] TELE ASSESS & MGT SRV PROV QUAL [...] MEASURED (CKD)(DM) DoD BLOOD PRESSURE MEASURED (CKD)(DM) [facility] BLOOD PRESSURE MEASURED (CKD)(DM) [facility] BLOOD PRESSURE MEASURED (CKD)(DM) [facility] SCREENING PAPANICOLAOU SMEAR; OBTAINING, PREPARING AND CONVEYANCE OF CERVICAL OR VAGINAL SMEAR TO LABORATORY [facility] SELF-CARE/HOME MANAGMENT TRAIN (EG,ACT OF DAILY LIVING (ADL) &COMPENSAT TRAIN,MEAL PREPARATION,SAFETY PROCS,AND INSTRUCT IN USE OF ASST TECHNOLOGY DEV/ADPT EQUIP) DIR ONE-ON-ONE CONT,EA 15 MINUTES [facility] APPLICATION OF SHORT ARM SPLINT (FOREARM TO HAND); STATIC [facility] WRIST HAND ORTHOSIS, WITHOUT JOINTS, MAY INCLUDE SOFT INTERFACE, STRAPS, CUSTOM FABRICATED, INCLUDES FITTING AND ADJUSTMENT [facility] PSYCHOLOGICAL TESTING (INCLUDES PSYCHODIAGNOSTIC ASSESSMENT OF PERSONALITY PSYCHOPATHOLOGY, EMOTIONALITY, INTELLECTUAL ABILITIES, EG, WAIS-R, RORSCHACH, MMPI) WITH INTERPRETATION AND REPORT, PER HOUR [facility] INDIVIDUAL PSYCHOTHERAPY, INSIGHT ORIENTED, BEHAVIOR MODIFYING AND/OR SUPPORTIVE, IN AN OFFICE OR OUTPATIENT FACILITY, APPROXIMATELY 20 TO 30 MINUTES [id number] WITH THE PATIENT [facility] INTERACTIVE GROUP PSYCHOTHERAPY [facility] PSYCHOLOGICAL TESTING (INCLUDES PSYCHODIAGNOSTIC ASSESSMENT OF PERSONALITY PSYCHOPATHOLOGY, EMOTIONALITY, INTELLECTUAL ABILITIES, EG, WAIS-R, RORSCHACH, MMPI) WITH INTERPRETATION AND REPORT, PER HOUR [facility] INTERACTIVE GROUP PSYCHOTHERAPY [facility] INDIVIDUAL PSYCHOTHERAPY, INSIGHT ORIENTED, BEHAVIOR MODIFYING AND/OR SUPPORTIVE, IN AN OFFICE OR OUTPATIENT FACILITY, APPROXIMATELY 20 TO 30 MINUTES [id number] WITH THE PATIENT [facility] INTERACTIVE GROUP PSYCHOTHERAPY [facility] PSYCHOLOGICAL TESTING (INCLUDES PSYCHODIAGNOSTIC ASSESSMENT OF PERSONALITY PSYCHOPATHOLOGY, EMOTIONALITY, INTELLECTUAL ABILITIES, EG, WAIS-R, RORSCHACH, MMPI) WITH INTERPRETATION AND REPORT, PER HOUR [facility] INTERACTIVE GROUP PSYCHOTHERAPY [facility] INDIVIDUAL PSYCHOTHERAPY, INSIGHT ORIENTED, BEHAVIOR MODIFYING AND/OR SUPPORTIVE, IN AN OFFICE OR OUTPATIENT FACILITY, APPROXIMATELY 20 TO 30 MINUTES [id number] WITH THE PATIENT [facility] FAMILY PSYCHOTHERAPY (CONJOINT PSYCHOTHERAPY) (WITH PATIENT PRESENT), 50 MINUTES [facility] PSYCHOLOGICAL TESTING (INCLUDES PSYCHODIAGNOSTIC ASSESSMENT OF PERSONALITY PSYCHOPATHOLOGY, EMOTIONALITY, INTELLECTUAL ABILITIES, EG, WAIS-R, RORSCHACH, MMPI) WITH INTERPRETATION AND REPORT, PER HOUR [facility] PSYCHIATRIC DIAGNOSTIC INTERVIEW EXAMINATION [facility] MEDICAL NUTRITION THERAPY; GROUP (2 OR MORE INDIVIDUAL(S)), EACH 30 MINUTES [facility] SCREENING PAPANICOLAOU SMEAR; OBTAINING, PREPARING AND CONVEYANCE OF CERVICAL OR VAGINAL SMEAR TO LABORATORY [facility] MEDICAL NUTRITION THERAPY; GROUP (2 OR MORE INDIVIDUAL(S)), EACH 30 MINUTES [facility] MEDICAL NUTRITION THERAPY; GROUP (2 OR MORE INDIVIDUAL(S)), EACH 30 MINUTES [facility] Social History Combined list of available smoking, tobacco, and other social history from [facility] facilities. Social History Type Response Date Comment [facility] e This section is an empty social history section. [facility] Assessment and Plan Combined list of future [...] at [facility] [place] Functional Hardy Measurement (FIM) Scale: 1 = Total Assistance (Subject = 0% +), 2 = Maximal Assistance (Subject = 25% +), 3 = Moderate Assistance (Subject = 50% +), 4 = Minimal Assistance (Subject = 75% +), 5 = Supervision, 6 = Modified Hardy (Device), 7 = Complete Hardy (Timely, Safely). Assessment Date/Time Source Assessment Type Assessment Skill Assessment Score Assessment Details No data available for this section
== END 2024-11-11 10:03 | disposition home or self-care (01) ==
PROVIDERS: Emergency Provider Nurse Practitioner Family
DX: H10.9 Unspecified conjunctivitis (principal); J06.9 Acute upper respiratory infection, unspecified; I10 Essential (primary) hypertension; E06.3 Autoimmune thyroiditis
CPT/HCPCS: 99213; G0463